=== PATIENT | male | born 1950 | race Caucasian/White ===

== ENCOUNTER → 2016-05-23 | Outpatient (CLI) | payer BC, MEDICARE ==
[~2016-05-23] MED LIST: ACIDOPHILUS PO; ACTOS 15MG TAB15 MG PO; ACTOS 45MG45 MG/TAB PO; ACTOS45 MG PO; ADDERALL10 MG PO; AMOXICILLIN 8751 TAB PO; AMPHETAMINE MIX PO; ANDROGEL1% TOP; ASPIRIN 32325 MG/TA1 PO; ATIVAN 0.50.5 MG/TAB PO; AVANDIA8 MG PO; BENADRYL25 M1 PO; BENADRYL25 M2 PO; BENADRYL25 MG PO; BUPROPION HCL150 M1 PO; CEPHALEXIN500 M1 PO; CINNAMON500 MG PO; CLOPIDOGREL PO; CRANBERRY1 POW; DEPO-TESTOS100 MG/ML IM; DESYREL 100MG100 MG PO; DIPHENHYDRAMINE25 M1 PO; DOS PO; EFFEXOR XR75 MG/CAP PO; ESTER C1 TA1 PO; FORTAMET500 MG PO; GLUCOPHAGE XR500 M1 PO; GLUCOPHAGE500 MG/TAB PO; HYDROCODONE/APAP PO; IPRATROPIUM BROM3 M1 IH; LAMICTAL150 MG PO; LAMOTRIGINE150 MG PO; LANTUS100 U/ML SQ; LATUDA40 MG PO; LAXATIVE PO; LEVEMIR100 U/ML SQ; LIPITOR 40MG TA40 MG PO; LISINOPRIL/HCTZ1 TA2 PO; LORTAB 10/500 51 TAB PO; LORTAB 5/500 501 TAB PO; LUTEIN 15 MG-0.1 SGL PO; LUTEIN20 MG PO; LUTEIN6 MG PO; MELATONIN0.3 MG PO; METFORMIN500 MG PO; MUCINEX 60600 MG/TA1 PO; MUCINEX 60600 MG/TAB PO; MUCUSRELF400T PO; MULTI VITAMINS1 TAB PO; MULTIPLE VITAMI1 CAP PO; NIRAVAM0.5 MG PO; NORCO 325 MG-101 TAB PO; NORCO 325 MG-7.1 TAB PO; NORVASC 10MG10 MG PO; NOVOLOG 100U100 U/M1 SQ; PEPTO BISM262 MG/15 PO; PERCOCET 325 MG1 TAB PO; PLAVIX 75MG TAB75 MG PO; PRINIVIL10 MG PO; PRINIVIL20 MG PO; PRISTIQ 50 MG T50 MG PO; PROZAC40 MG PO; SEROQUEL100 MG PO; SEROQUEL300 MG PO; SEROQUEL50 MG PO; STRESS B COMPLE1 TAB PO; TYLENOL 500MG500 MG PO; VICODIN PO; VTAMINC250TA; VYTORIN; VYTORIN 10 MG-81 TAB PO; WELLBUTRIN 75MG75 MG PO; WELLBUTRIN XL150 MG PO; XANAX 0.5MG0.5 MG PO; ZANTAC 150MG T150 MG PO; ZETIA 10MG TAB10 MG PO; ZOCOR 80MG80 MG PO
== END ==
LOC: BHSO 14:32
DX: F31.81 Bipolar II disorder (principal)

== ENCOUNTER → 2016-06-22 | Outpatient (CLI) | payer BC, MEDICARE | LOC: BHSO 14:29 | DX: F31.81 Bipolar II disorder (principal) ==

== ENCOUNTER → 2016-08-10 | Outpatient (CLI) | payer BC, MEDICARE | LOC: BHSO 14:16 | DX: F33.1 Major depressive disorder, recurrent, moderate (principal) ==

== ENCOUNTER → 2016-10-11 | Outpatient (CLI) | payer BC, MEDICARE | LOC: BHSO 14:39 | DX: F33.41 Major depressive disorder, recurrent, in partial remission (principal) ==

== ENCOUNTER → 2016-11-15 | Outpatient (CLI) | payer BC, MEDICARE | LOC: BHSO 15:24 | DX: F33.1 Major depressive disorder, recurrent, moderate (principal) ==

== ENCOUNTER → 2016-11-16 | Outpatient (CLI) | payer BC, MEDICARE | LOC: SUN.DIA 09:17 | DX: E11.9 Type 2 diabetes mellitus without complications (principal); Z79.4 Long term (current) use of insulin; I67.9 Cerebrovascular disease, unspecified; E66.9 Obesity, unspecified; Z68.32 Body mass index [BMI] 32.0-32.9, adult; Z71.3 Dietary counseling and surveillance; Z87.891 Personal history of nicotine dependence | CPT/HCPCS: G0108 ==

== ENCOUNTER → 2016-11-23 | Outpatient (CLI) | payer BC, MEDICARE | LOC: SUN.DIA 12:59 | DX: E11.9 Type 2 diabetes mellitus without complications (principal); Z79.4 Long term (current) use of insulin; I67.9 Cerebrovascular disease, unspecified; E66.9 Obesity, unspecified; Z68.32 Body mass index [BMI] 32.0-32.9, adult; Z71.3 Dietary counseling and surveillance; F17.210 Nicotine dependence, cigarettes, uncomplicated | CPT/HCPCS: G0108 ==

== ENCOUNTER 2016-12-22 07:34 | Outpatient (CLI) | payer BC, MEDICARE ==
[2004-09-22 09:23] VITALS: BP 152/87
[~2016-12-22] VITALS: Ht 177.8 cm; Wt 102.2 kg
[~2016-12-22 07:34] MED LIST changes: -CEPHALEXIN500 M1 PO; -LIPITOR 40MG TA40 MG PO; -NOVOLOG 100U100 U/M1 SQ; -PEPTO BISM262 MG/15 PO; -PRISTIQ 50 MG T50 MG PO
[2016-12-22] MEDS ORDERED: PRISTIQ 50 MG T50 MG PO (08:02)
[2016-12-22] MEDS ORDERED: ADDERALL10 MG PO (08:03)
[2016-12-22] MEDS ORDERED: LIPITOR 40MG TA40 MG PO (08:10)
[2016-12-22] MEDS ORDERED: NOVOLOG 100U100 U/M1 SQ (08:11)
[2016-12-22] MEDS ORDERED: LAXATIVE PO (08:14)
[2016-12-22] MEDS ORDERED: PEPTO BISM262 MG/15 PO (08:15)
[2016-12-22 08:56] VITALS: BP 135/70; PULSE 50
[2016-12-22] MEDS ORDERED: CEPHALEXIN500 M1 PO (09:12)
[2016-12-22 09:15] VITALS: BP 138/64; PULSE 59
== END 2016-12-22 09:28 | disposition home or self-care (01) ==
LOC: COL.CAR 07:34
DX: I47.2 Ventricular tachycardia (principal); I10 Essential (primary) hypertension; I27.2 Other secondary pulmonary hypertension; I05.9 Rheumatic mitral valve disease, unspecified; I73.9 Peripheral vascular disease, unspecified; Z79.01 Long term (current) use of anticoagulants; Z79.84 Long term (current) use of oral hypoglycemic drugs; Z87.891 Personal history of nicotine dependence; Z82.49 Family history of ischemic heart disease and other diseases of the circulatory system; Z80.3 Family history of malignant neoplasm of breast; Z80.8 Family history of malignant neoplasm of other organs or systems; Z82.61 Family history of arthritis; Z80.42 Family history of malignant neoplasm of prostate
CPT/HCPCS: 27124; C1764

== ENCOUNTER → 2017-01-05 | Outpatient (CLI) | payer BC, MEDICARE ==
[~2017-01-05] MED LIST changes: +CEPHALEXIN500 M1 PO; +LIPITOR 40MG TA40 MG PO; +NOVOLOG 100U100 U/M1 SQ; +PEPTO BISM262 MG/15 PO; +PRISTIQ 50 MG T50 MG PO
== END ==
LOC: SUN.DIA 09:41
DX: E11.9 Type 2 diabetes mellitus without complications (principal); Z79.4 Long term (current) use of insulin; I67.9 Cerebrovascular disease, unspecified; E66.9 Obesity, unspecified; Z68.32 Body mass index [BMI] 32.0-32.9, adult; Z71.3 Dietary counseling and surveillance; Z87.891 Personal history of nicotine dependence
CPT/HCPCS: G0108

== ENCOUNTER → 2017-01-18 | Outpatient (CLI) | payer BC, MEDICARE | LOC: BHSO 15:11 | DX: F41.0 Panic disorder [episodic paroxysmal anxiety] (principal) ==

== ENCOUNTER → 2017-03-01 | Outpatient (CLI) | payer BC, MEDICARE | LOC: BHSO 15:34 | DX: F31.81 Bipolar II disorder (principal) ==

== ENCOUNTER → 2017-04-04 | Outpatient (CLI) | payer BC, MEDICARE | LOC: SUN.DIA 09:44 | DX: E11.9 Type 2 diabetes mellitus without complications (principal); Z79.4 Long term (current) use of insulin; I67.9 Cerebrovascular disease, unspecified; E66.9 Obesity, unspecified; Z68.31 Body mass index [BMI] 31.0-31.9, adult; Z71.3 Dietary counseling and surveillance; Z87.891 Personal history of nicotine dependence | CPT/HCPCS: G0108 ==

== ENCOUNTER → 2017-04-19 | Outpatient (CLI) | payer BC, MEDICARE | LOC: COL.RAD 09:01 | DX: N28.1 Cyst of kidney, acquired (principal) ==

== ENCOUNTER → 2017-05-19 | Outpatient (CLI) | payer BC, MEDICARE | LOC: BHSO 14:50 | DX: F41.1 Generalized anxiety disorder (principal) | CPT/HCPCS: G0463 ==

== ENCOUNTER → 2017-05-29 | Outpatient (CLI) | payer BC, MEDICARE | LOC: COL.PUL 05-18 10:00 | DX: R06.02 Shortness of breath (principal); Z87.891 Personal history of nicotine dependence | CPT/HCPCS: J7674 ==

== ENCOUNTER → 2017-06-13 | Outpatient (CLI) | payer BC, MEDICARE | LOC: SUN.DIA 12:04 | DX: E11.9 Type 2 diabetes mellitus without complications (principal); Z79.4 Long term (current) use of insulin; I67.9 Cerebrovascular disease, unspecified; E66.9 Obesity, unspecified; Z68.31 Body mass index [BMI] 31.0-31.9, adult; Z71.3 Dietary counseling and surveillance; Z87.891 Personal history of nicotine dependence | CPT/HCPCS: G0108 ==

== ENCOUNTER 2017-07-09 04:16 | Inpatient (IN) | payer BC, MEDICARE ==
[~2017-07-09] VITALS: Ht 177.8 cm; Wt 102.1 kg
[2017-07-09 05:08] LABS: BASO % 0.3 % (0.0-2.0); EOS % 0.2 % (0-4.0); GRAN # 9.2 (1.4-6.5); GRAN % 80.8 % (42.2-75.2); HEMATOCRIT 50.2 % (42.0-52.0); HEMOGLOBIN 16.3 g/dl (13.5-18.0); LYMPH # 0.6 (1.2-3.4); MEAN CELL VOLUME 96 fl (80.0-100.0); MEAN CORPUSCULAR HEMOGLOBIN 31 pg (27.0-31.0); MEAN CORPUSCULAR HGB CONC 33 g/dl (33.0-37.0); MEAN PLATELET VOLUME 10.4 fl (7.4-10.4); MONO # 1.5 (0.1-0.6); MONO % 13.3 % (1.7-9.3); PLATELET COUNT 155 K/mm3 (130-400); RED BLOOD COUNT 5.22 M/mm3 (4.20-5.60)
[2017-07-09 05:21] LABS: PROTHROMBIN TIME 11.6 SECONDS (9.7-12.8)
[2017-07-09 05:24] LABS: ALANINE AMINOTRANSFERASE 43 U/L (21-72); ALBUMIN 3.9 gm/dL (3.5-5.0); ALKALINE PHOSPHATASE 103 U/L (50-136); ANION GAP 10 mmol/L (7-16); AST,SGOT 27 U/L (15-37); BILIRUBIN,TOTAL 0.5 mg/dL (0.0-1.0); BLOOD UREA NITROGEN 15 mg/dL (9-20); CALCIUM 8.6 mg/dL (8.4-10.2); CARBON DIOXIDE 24 mmol/L (22-30); CHLORIDE 101 mmol/L (98-107); CREATININE, serum 1.12 mg/dL (0.66-1.25); GLUCOSE 85 mg/dL (74-106); POTASSIUM 4.4 mmol/L (3.4-5.0); SODIUM 135 mmol/L (137-145); TOTAL PROTEIN 6.5 gm/dL (6.4-8.2)
[2017-07-09 05:35] LABS: TROPONIN-I < 0.012 ng/mL (0.000-0.034)
[2017-07-09] MEDS ORDERED: NORVASC 5MG5 MG/TAB PO (06:19)
[2017-07-09] MEDS ORDERED: ZESTRIL 10MG10 MG PO (06:19)
[2017-07-09] MEDS ORDERED: PLAVIX 75MG TAB75 MG PO (06:20)
[2017-07-09] MEDS ORDERED: FORFIVO XL450 MG PO (06:20)
[2017-07-09] MEDS ORDERED: BRINTELLIX20 PO (06:21)
[2017-07-09] MEDS ORDERED: NORCO 325 MG-101 TAB PO (06:21)
[2017-07-09] MEDS ORDERED: CENTRUM SILVER1 TAB PO (06:25)
[2017-07-09] MEDS ORDERED: LUTEIN6 MG PO (06:25)
[2017-07-09] MEDS ORDERED: STRESS FORMULA1 T16 PO (06:26)
[2017-07-09] MEDS ORDERED: ZETIA 10MG TAB10 MG PO (06:26)
[2017-07-09] MEDS ORDERED: GLUCOPHAGE500 MG/TAB PO (06:27)
[2017-07-09] MEDS ORDERED: DESYREL 100MG100 MG PO (06:27)
[2017-07-09] MEDS ORDERED: LIPITOR 40MG TA40 MG PO (06:28)
[2017-07-09] MEDS ORDERED: TRESIBA FL100 UNIT/1 SQ (06:28)
[2017-07-09 06:30] LABS: COLLECTION METHOD CLEAN CATCH
[2017-07-09] MEDS ORDERED: NOVOLOG 100U100 U/M1 SQ (06:31)
[2017-07-09] MEDS ORDERED: ANDROGEL1% SQ (06:34)
[2017-07-09] MEDS ORDERED: ATIVAN 0.50.5 MG/TAB PO (06:34)
[2017-07-09] MEDS ORDERED: RT SPIRIVA18 MCG IH (06:35)
[2017-07-09] MEDS ORDERED: RT ADVAIR HFA 2312 G IH (06:35)
[2017-07-09] MEDS ORDERED: IPRATROPIUM BROM3 M1 IH (06:36)
[2017-07-09 06:46] LABS: PH 6 (5-8); SQUAMOUS EPITHELIAL None Seen /hpf; URINE APPEARANCE Clear; URINE BACTERIA None Seen /hpf; URINE BILIRUBIN Negative (NEGATIVE); URINE BLOOD Negative (NEGATIVE); URINE COLOR Yellow; URINE GLUCOSE Negative (NEGATIVE); URINE KETONE Negative (NEGATIVE); URINE LEUKOCYTE ESTERASE 3+ (NEGATIVE); URINE NITRATE Negative (NEGATIVE); URINE PROTEIN(semi-quant) 1+ (NEGATIVE); URINE RBC 0-2 /hpf; URINE UROBILINOGEN Negative (NEGATIVE)
[2017-07-09 09:24] VITALS: BP 152/66; PULSE 59; TEMP 98.7
[2017-07-09 13:01] VITALS: BP 124/43; PULSE 65; TEMP 98.6
[2017-07-09 15:36] VITALS: BP 125/48; PULSE 52; TEMP 98.5
[2017-07-09 20:21] VITALS: BP 152/60; PULSE 70; TEMP 99.2
[2017-07-09 23:46] VITALS: BP 124/71; PULSE 61; TEMP 98.4
[2017-07-10 00:14] VITALS: BP 148/107; PULSE 69; TEMP 99.4
[2017-07-10 03:59] VITALS: BP 155/64; PULSE 56; TEMP 97.6
[2017-07-10 07:00] LABS: BASO % 0.1 % (0.0-2.0); EOS % 0.1 % (0-4.0); GRAN # 5.1 (1.4-6.5); GRAN % 69.1 % (42.2-75.2); HEMATOCRIT 47.1 % (42.0-52.0); HEMOGLOBIN 15.4 g/dl (13.5-18.0); LYMPH # 0.8 (1.2-3.4); LYMPH % 11.1 % (20.0-51.0); MEAN CELL VOLUME 96 fl (80.0-100.0); MEAN CORPUSCULAR HEMOGLOBIN 31 pg (27.0-31.0); MEAN CORPUSCULAR HGB CONC 33 g/dl (33.0-37.0); MEAN PLATELET VOLUME 10.6 fl (7.4-10.4); MONO # 1.4 (0.1-0.6); MONO % 19.2 % (1.7-9.3); PLATELET COUNT 166 K/mm3 (130-400); RED BLOOD COUNT 4.91 M/mm3 (4.20-5.60); REDCELL DISTRIBUTION WIDTH-CV 14.3 % (11.5-14.5)
[2017-07-10 07:13] LABS: CALCIUM 8.3 mg/dL (8.4-10.2); CREATININE, serum 1.05 mg/dL (0.66-1.25); MAGNESIUM 2.4 mg/dL (1.6-2.3); PHOSPHOROUS 3.2 mg/dL (2.5-4.5); POTASSIUM 3.6 mmol/L (3.4-5.0)
[2017-07-10 07:28] VITALS: BP 155/73; PULSE 59; TEMP 99
[2017-07-10 11:53] VITALS: BP 155/76; PULSE 65; TEMP 97.9
[2017-07-10 15:28] VITALS: BP 151/63; PULSE 63; TEMP 97.7
[2017-07-10 20:07] VITALS: BP 135/45; PULSE 55; TEMP 98.6
[2017-07-11] VITALS (8 sets, daily range): BP systolic 109–165; BP diastolic 55–75; PULSE 53–84; TEMP 97.5–99.1
[2017-07-11 07:56] LABS: HEMATOCRIT 47.6 % (42.0-52.0); HEMOGLOBIN 15.7 g/dl (13.5-18.0); MEAN CELL VOLUME 96 fl (80.0-100.0); MEAN CORPUSCULAR HEMOGLOBIN 32 pg (27.0-31.0); MEAN CORPUSCULAR HGB CONC 33 g/dl (33.0-37.0); MEAN PLATELET VOLUME 10.6 fl (7.4-10.4); PLATELET COUNT 176 K/mm3 (130-400); RED BLOOD COUNT 4.96 M/mm3 (4.20-5.60); REDCELL DISTRIBUTION WIDTH-CV 14.5 % (11.5-14.5)
[2017-07-11 08:10] LABS: CALCIUM 8.7 mg/dL (8.4-10.2); CREATININE, serum 1.12 mg/dL (0.66-1.25); POTASSIUM 3.8 mmol/L (3.4-5.0)
[2017-07-11 12:39] LABS: BAND 2 % (0-10); EOSINOPHIL 1 % (0-4); LYMPHOCYTE 22 % (20.0-51.0); NEUTROPHILS 64 % (42.0-75.2)
[2017-07-11 12:42] LABS: HYPOCHROMIA 1+; PLATELET ESTIMATE NORMAL (NORMAL)
[2017-07-12 02:33] VITALS: BP 136/63; PULSE 87; TEMP 98.5
[2017-07-12 06:24] LABS: EOS % 0.2 % (0-4.0); GRAN # 4.3 (1.4-6.5); GRAN % 67.5 % (42.2-75.2); HEMATOCRIT 50.5 % (42.0-52.0); HEMOGLOBIN 16.6 g/dl (13.5-18.0); LYMPH # 1.1 (1.2-3.4); LYMPH % 17.4 % (20.0-51.0); MEAN CELL VOLUME 96 fl (80.0-100.0); MEAN CORPUSCULAR HEMOGLOBIN 31 pg (27.0-31.0); MEAN CORPUSCULAR HGB CONC 33 g/dl (33.0-37.0); MEAN PLATELET VOLUME 10.1 fl (7.4-10.4); MONO # 0.9 (0.1-0.6); MONO % 14.4 % (1.7-9.3); PLATELET COUNT 177 K/mm3 (130-400); RED BLOOD COUNT 5.28 M/mm3 (4.20-5.60); REDCELL DISTRIBUTION WIDTH-CV 14.4 % (11.5-14.5)
[2017-07-12 06:43] LABS: CREATININE, serum 1.06 mg/dL (0.66-1.25); POTASSIUM 3.8 mmol/L (3.4-5.0)
[2017-07-12 07:24] VITALS: BP 180/86; PULSE 53; TEMP 97.7
[2017-07-12 12:02] VITALS: BP 166/76; PULSE 63
[2017-07-12] MEDS ORDERED: LEVAQUIN 750MG750 M1 PO (14:03)
[2017-07-12] MEDS ORDERED: PROAIR HFA0.09 MG/AC IH (14:04)
[2017-07-12] MEDS ORDERED: TESSALON P100 MG/CAP PO (14:07)
[2017-07-12] MEDS ORDERED: PREDNISONE20 MG PO (14:08)
[2017-07-12] MEDS ORDERED: MUCINEX DM 30 M1 TE1 PO (14:08)
[2017-07-12] MEDS ORDERED: FLONASE NASAL S16 GM NS (14:08)
== END 2017-07-12 16:51 | disposition home or self-care (01) | DRG 194 ==
LOC: COL.ER 04:16 → MEDICAL 07:55
PROVIDERS: Emergency Medicine; Internal Medicine; Physician Assistant
DX: J10.1 Influenza due to other identified influenza virus with other respiratory manifestations (principal); N39.0 Urinary tract infection, site not specified; G47.33 Obstructive sleep apnea (adult) (pediatric); F10.21 Alcohol dependence, in remission; J43.9 Emphysema, unspecified; E11.649 Type 2 diabetes mellitus with hypoglycemia without coma; E11.22 Type 2 diabetes mellitus with diabetic chronic kidney disease; I12.9 Hypertensive chronic kidney disease with stage 1 through stage 4 chronic kidney disease, or unspecified chronic kidney disease; N18.9 Chronic kidney disease, unspecified; Z87.891 Personal history of nicotine dependence; Z79.4 Long term (current) use of insulin; Z86.73 Personal history of transient ischemic attack (TIA), and cerebral infarction without residual deficits
CPT/HCPCS: 99222-AI; 99231-AI; 99232-AI; 99239; G0378; G8978-GP; G8979-GP; G8987-GO; G8988-GO; J0456; J0696; J1644; J1815; J2405; J7030; J7050; J7512

== ENCOUNTER → 2017-07-20 | Outpatient (CLI) | payer BC, MEDICARE ==
[~2017-07-20] MED LIST changes: +ANDROGEL1% SQ; +BRINTELLIX20 PO; +CENTRUM SILVER1 TAB PO; +FLONASE NASAL S16 GM NS; +FORFIVO XL450 MG PO; +LEVAQUIN 750MG750 M1 PO; +MUCINEX DM 30 M1 TE1 PO; +NORVASC 5MG5 MG/TAB PO; +PREDNISONE20 MG PO; +PROAIR HFA0.09 MG/AC IH; +RT ADVAIR HFA 2312 G IH; +RT SPIRIVA18 MCG IH; +STRESS FORMULA1 T16 PO; +TESSALON P100 MG/CAP PO; +TRESIBA FL100 UNIT/1 SQ; +ZESTRIL 10MG10 MG PO
== END ==
LOC: SUN.DIA 15:01
DX: E11.9 Type 2 diabetes mellitus without complications (principal); Z79.4 Long term (current) use of insulin; I67.9 Cerebrovascular disease, unspecified; E66.9 Obesity, unspecified; Z68.30 Body mass index [BMI] 30.0-30.9, adult; Z71.3 Dietary counseling and surveillance; Z87.891 Personal history of nicotine dependence
CPT/HCPCS: G0108

== ENCOUNTER → 2017-08-15 | Outpatient (CLI) | payer BC, MEDICARE | LOC: BHSO 15:16 | DX: F33.41 Major depressive disorder, recurrent, in partial remission (principal) | CPT/HCPCS: G0463 ==

== ENCOUNTER → 2017-10-26 | Outpatient (CLI) | payer BC, MEDICARE | LOC: SUN.DIA 15:28 | DX: E11.9 Type 2 diabetes mellitus without complications (principal); Z79.4 Long term (current) use of insulin; I67.9 Cerebrovascular disease, unspecified; E66.9 Obesity, unspecified; Z68.29 Body mass index [BMI] 29.0-29.9, adult; Z71.3 Dietary counseling and surveillance; Z87.891 Personal history of nicotine dependence | CPT/HCPCS: G0108 ==

== ENCOUNTER → 2017-11-16 | Outpatient (CLI) | payer BC, MEDICARE | LOC: BHSO 15:30 | DX: F06.32 Mood disorder due to known physiological condition with major depressive-like episode (principal) | CPT/HCPCS: G0463 ==

== ENCOUNTER 2017-12-15 08:34 | Inpatient (IN) | payer BC, MEDICARE ==
[~2017-12-15] VITALS: Ht 177.8 cm; Wt 90.5 kg
[2017-12-15] VITALS (9 sets, daily range): BP systolic 137–182; BP diastolic 59–101; PULSE 58–80; TEMP 97.8–98.5
[2017-12-15 09:48] LABS: HEMATOCRIT 53.2 % (42.0-52.0); HEMOGLOBIN 17.7 g/dl (13.5-18.0); MEAN CELL VOLUME 97 fl (80.0-100.0); MEAN CORPUSCULAR HEMOGLOBIN 32 pg (27.0-31.0); MEAN CORPUSCULAR HGB CONC 33 g/dl (33.0-37.0); MEAN PLATELET VOLUME 9.6 fl (7.4-10.4); PLATELET COUNT 204 K/mm3 (130-400); RED BLOOD COUNT 5.48 M/mm3 (4.20-5.60); REDCELL DISTRIBUTION WIDTH-CV 13.2 % (11.5-14.5)
[2017-12-15 09:56] LABS: INR 0.9 (0.8-3.0); PROTHROMBIN TIME 10.7 SECONDS (9.7-12.8)
[2017-12-15] MEDS ORDERED: TYLENOL PM EXTR1 TA1 PO (10:00)
[2017-12-15] MEDS ORDERED: SENOKOT S 50 MG1 TAB PO (10:01)
[2017-12-15 10:02] LABS: CREATININE, serum 1.17 mg/dL (0.66-1.25); POTASSIUM 4.4 mmol/L (3.4-5.0)
[2017-12-15] MEDS ORDERED: ULTRAM 50MG TAB50 MG PO (10:02)
[2017-12-15] MEDS ORDERED: PEPTO BISM262 MG/15 PO (10:02)
[2017-12-16] VITALS (7 sets, daily range): BP systolic 118–166; BP diastolic 59–81; PULSE 37–60; TEMP 97.7–98.4
[2017-12-17 04:38] VITALS: BP 185/87; PULSE 62; TEMP 97.8
[2017-12-17 05:11] VITALS: BP 128/80
[2017-12-17 07:44] VITALS: BP 138/74; PULSE 60; TEMP 97.6
[2017-12-17] MEDS ORDERED: BETAPACE 80MG80 MG PO (10:51)
[2017-12-17 11:24] VITALS: BP 150/69; PULSE 62; TEMP 97.9
== END 2017-12-17 12:41 | disposition home or self-care (01) | DRG 227 ==
LOC: COL.CAR 08:34 → MEDICAL 12:00
PROVIDERS: Internal Medicine Cardiovascular Disease
PROC: 0JH608Z Insertion of Defibrillator Generator into Chest Subcutaneous Tissue and Fascia, Open Approach (ICD-10-PCS; principal; 2017-12-15)
PROC: 02HK3KZ Insertion of Defibrillator Lead into Right Ventricle, Percutaneous Approach (ICD-10-PCS; 2017-12-15)
PROC: 02H63KZ Insertion of Defibrillator Lead into Right Atrium, Percutaneous Approach (ICD-10-PCS; 2017-12-15)
DX: I47.1 Supraventricular tachycardia (principal); I10 Essential (primary) hypertension; E11.9 Type 2 diabetes mellitus without complications; Z87.891 Personal history of nicotine dependence; Z95.0 Presence of cardiac pacemaker; I27.20 Pulmonary hypertension, unspecified
CPT/HCPCS: J0690; J1815; J2250; J3010

== ENCOUNTER 2017-12-20 04:01 | Observation (INO) | payer BC, MEDICARE ==
[~2017-12-20] VITALS: Ht 177.8 cm; Wt 90.6 kg
[2017-12-20] VITALS (8 sets, daily range): BP systolic 115–155; BP diastolic 73–84; PULSE 58–97; TEMP 97.7–98.8
[~2017-12-20 04:01] MED LIST changes: +BETAPACE 80MG80 MG PO; +SENOKOT S 50 MG1 TAB PO; +TYLENOL PM EXTR1 TA1 PO; +ULTRAM 50MG TAB50 MG PO
[2017-12-20 04:29] LABS: BASO % 0.2 % (0.0-2.0); EOS # 0.1 (0.0-0.7); EOS % 1.3 % (0-4.0); GRAN # 6.2 (1.4-6.5); GRAN % 66.2 % (42.2-75.2); HEMATOCRIT 50.4 % (42.0-52.0); HEMOGLOBIN 16.9 g/dl (13.5-18.0); LYMPH # 1.9 (1.2-3.4); LYMPH % 19.9 % (20.0-51.0); MEAN CELL VOLUME 97 fl (80.0-100.0); MEAN CORPUSCULAR HEMOGLOBIN 33 pg (27.0-31.0); MEAN CORPUSCULAR HGB CONC 34 g/dl (33.0-37.0); MEAN PLATELET VOLUME 10.2 fl (7.4-10.4); MONO # 1.1 (0.1-0.6); PLATELET COUNT 171 K/mm3 (130-400); RED BLOOD COUNT 5.19 M/mm3 (4.20-5.60); REDCELL DISTRIBUTION WIDTH-CV 13.2 % (11.5-14.5)
[2017-12-20 04:36] LABS: ALBUMIN 3.6 gm/dL (3.5-5.0); BILIRUBIN,TOTAL 0.3 mg/dL (0.0-1.0); CALCIUM 8.4 mg/dL (8.4-10.2); CREATININE, serum 1.11 mg/dL (0.66-1.25); TOTAL PROTEIN 6.1 gm/dL (6.4-8.2)
[2017-12-20] MEDS ORDERED: COLACE 100100 MG/CAP PO (04:45)
[2017-12-20] MEDS ORDERED: FIBERCON (04:45)
[2017-12-20] MEDS ORDERED: MELATONIN5 M1 SL (04:46)
[2017-12-20 04:48] LABS: TROPONIN-I 0.017 ng/mL (0.000-0.034)
[2017-12-20] MEDS ORDERED: LINZESS145CAP (05:41)
[2017-12-20] MEDS ORDERED: PATANOL OPHTHALM5 ML OU (05:47)
[2017-12-20] MEDS ORDERED: ZYRTEC5 MG PO (05:47)
[2017-12-21 00:20] VITALS: PULSE 58; PULSE 88
[2017-12-21 02:49] VITALS: BP 122/70; PULSE 56; TEMP 97.5
[2017-12-21 06:47] VITALS: BP 141/81; PULSE 60; TEMP 97.8
[2017-12-21 11:40] VITALS: BP 133/76; PULSE 66; TEMP 98.4
[2017-12-21 15:51] VITALS: BP 111/66; PULSE 93; TEMP 98.3
[2017-12-21] MEDS ORDERED: NOVOLOG 100U100 U/M1 SQ (16:22)
== END 2017-12-21 19:16 | disposition home or self-care (01) ==
LOC: COL.ER 04:01 → MEDICAL 07:18 → EDBEDREQ 10:47 → MEDICAL 12-21 19:16
PROVIDERS: Emergency Medicine
DX: R07.89 Other chest pain (principal); E11.9 Type 2 diabetes mellitus without complications; I49.01 Ventricular fibrillation; I47.2 Ventricular tachycardia; I73.9 Peripheral vascular disease, unspecified; Z95.810 Presence of automatic (implantable) cardiac defibrillator; F31.9 Bipolar disorder, unspecified; Z79.02 Long term (current) use of antithrombotics/antiplatelets; Z86.73 Personal history of transient ischemic attack (TIA), and cerebral infarction without residual deficits; J44.9 Chronic obstructive pulmonary disease, unspecified; J32.9 Chronic sinusitis, unspecified; I10 Essential (primary) hypertension; E78.5 Hyperlipidemia, unspecified; K59.00 Constipation, unspecified; G47.33 Obstructive sleep apnea (adult) (pediatric)
CPT/HCPCS: A9502; G0378; J1815; J2785

== ENCOUNTER 2017-12-24 03:11 | Emergency (ER) | payer BC, MEDICARE ==
[2004-09-22 09:23] VITALS: BP 152/87
[~2017-12-24] VITALS: Ht 177.8 cm; Wt 90.5 kg
[~2017-12-24 03:11] MED LIST changes: +COLACE 100100 MG/CAP PO; +FIBERCON; +LINZESS145CAP; +MELATONIN5 M1 SL; +PATANOL OPHTHALM5 ML OU; +ZYRTEC5 MG PO
[2017-12-24 03:31] LABS: BASO % 0.3 % (0.0-2.0); EOS # 0.2 (0.0-0.7); EOS % 2.2 % (0-4.0); GRAN # 5.3 (1.4-6.5); GRAN % 60.8 % (42.2-75.2); HEMOGLOBIN 17.7 g/dl (13.5-18.0); LYMPH # 2.2 (1.2-3.4); LYMPH % 24.7 % (20.0-51.0); MEAN CELL VOLUME 97 fl (80.0-100.0); MEAN CORPUSCULAR HEMOGLOBIN 32 pg (27.0-31.0); MEAN CORPUSCULAR HGB CONC 33 g/dl (33.0-37.0); MEAN PLATELET VOLUME 10.4 fl (7.4-10.4); MONO % 11.5 % (1.7-9.3); PLATELET COUNT 161 K/mm3 (130-400); RED BLOOD COUNT 5.49 M/mm3 (4.20-5.60); REDCELL DISTRIBUTION WIDTH-CV 13.1 % (11.5-14.5)
[2017-12-24 03:35] LABS: PARTIAL THROMBOPLASTIN TIME 45.9 SECONDS (26.0-37.0)
[2017-12-24 03:37] LABS: INR 0.9 (0.8-3.0); PROTHROMBIN TIME 10.6 SECONDS (9.7-12.8)
[2017-12-24 03:38] LABS: ALANINE AMINOTRANSFERASE 64 U/L (21-72); ALBUMIN 3.9 gm/dL (3.5-5.0); ALKALINE PHOSPHATASE 127 U/L (50-136); ANION GAP 12 mmol/L (7-16); AST,SGOT 41 U/L (15-37); BILIRUBIN,TOTAL 0.5 mg/dL (0.0-1.0); BLOOD UREA NITROGEN 16 mg/dL (9-20); CALCIUM 8.9 mg/dL (8.4-10.2); CARBON DIOXIDE 23 mmol/L (22-30); CHLORIDE 104 mmol/L (98-107); CREATININE, serum 0.95 mg/dL (0.66-1.25); GLUCOSE 201 mg/dL (74-106); LIPASE 67 U/L (23-300); POTASSIUM 4.1 mmol/L (3.4-5.0); SODIUM 138 mmol/L (137-145); TOTAL PROTEIN 6.7 gm/dL (6.4-8.2)
[2017-12-24 03:50] LABS: TROPONIN-I < 0.012 ng/mL (0.000-0.034)
[2017-12-24 10:00] VITALS: BP 179/98; PULSE 65
== END 2017-12-24 10:00 | disposition short-term general hospital (02) ==
LOC: COL.ER 03:11
PROVIDERS: Emergency Medicine
DX: I21.4 Non-ST elevation (NSTEMI) myocardial infarction (principal); E78.5 Hyperlipidemia, unspecified; J44.9 Chronic obstructive pulmonary disease, unspecified; E11.51 Type 2 diabetes mellitus with diabetic peripheral angiopathy without gangrene; Z79.4 Long term (current) use of insulin; Z79.891 Long term (current) use of opiate analgesic; Z95.810 Presence of automatic (implantable) cardiac defibrillator
CPT/HCPCS: J1650

== ENCOUNTER 2017-12-26 13:34 | Emergency (ER) | payer BC, MEDICARE ==
[2004-09-22 09:23] VITALS: BP 152/87
[~2017-12-26] VITALS: Ht 177.8 cm; Wt 90.9 kg
[2017-12-26 13:38] VITALS: TEMP 98.7
[2017-12-26 13:59] LABS: BASO % 0.3 % (0.0-2.0); EOS # 0.1 (0.0-0.7); EOS % 0.9 % (0-4.0); GRAN # 7.2 (1.4-6.5); GRAN % 74.8 % (42.2-75.2); LYMPH # 1.2 (1.2-3.4); LYMPH % 12.8 % (20.0-51.0); MEAN CELL VOLUME 95 fl (80.0-100.0); MEAN CORPUSCULAR HEMOGLOBIN 32 pg (27.0-31.0); MEAN CORPUSCULAR HGB CONC 34 g/dl (33.0-37.0); MONO % 10.9 % (1.7-9.3); PLATELET COUNT 165 K/mm3 (130-400); RED BLOOD COUNT 5.57 M/mm3 (4.20-5.60)
[2017-12-26] MEDS ORDERED: ASPI325T6 PO (14:02)
[2017-12-26] MEDS ORDERED: TOPROL XL 25MG25 MG PO (14:03)
[2017-12-26 14:05] LABS: HEMATOCRIT 53.1 % (42.0-52.0)
[2017-12-26 14:09] LABS: PROTHROMBIN TIME 10.8 SECONDS (9.7-12.8)
[2017-12-26 14:11] LABS: ALBUMIN 4.2 gm/dL (3.5-5.0); BILIRUBIN,TOTAL 0.9 mg/dL (0.0-1.0); CALCIUM 9.3 mg/dL (8.4-10.2); CREATININE, serum 0.93 mg/dL (0.66-1.25); PARTIAL THROMBOPLASTIN TIME 39.1 SECONDS (26.0-37.0); POTASSIUM 4.1 mmol/L (3.4-5.0); TOTAL PROTEIN 7.1 gm/dL (6.4-8.2)
[2017-12-26 14:28] LABS: TROPONIN-I 0.221 ng/mL (0.000-0.034)
[2017-12-26 17:07] VITALS: BP 130/81; PULSE 70
== END 2017-12-26 17:07 | disposition home or self-care (01) ==
LOC: COL.ER 13:34
PROVIDERS: Family Medicine
DX: I25.10 Atherosclerotic heart disease of native coronary artery without angina pectoris (principal); I10 Essential (primary) hypertension; E11.9 Type 2 diabetes mellitus without complications; Z95.810 Presence of automatic (implantable) cardiac defibrillator; Z87.891 Personal history of nicotine dependence; Z79.4 Long term (current) use of insulin; Z79.891 Long term (current) use of opiate analgesic; Z79.82 Long term (current) use of aspirin

== ENCOUNTER 2018-01-03 13:51 | Emergency (ER) | payer BC, MEDICARE ==
[2004-09-22 09:23] VITALS: BP 152/87
[~2018-01-03] VITALS: Ht 177.8 cm; Wt 90.9 kg
[~2018-01-03 13:51] MED LIST changes: +ASPI325T6 PO; +TOPROL XL 25MG25 MG PO
[2018-01-03 13:53] VITALS: TEMP 97.6
[2018-01-03 14:22] LABS: BASO % 0.2 % (0.0-2.0); EOS # 0.2 (0.0-0.7); EOS % 1.8 % (0-4.0); GRAN # 6.1 (1.4-6.5); GRAN % 72.9 % (42.2-75.2); HEMATOCRIT 48.1 % (42.0-52.0); HEMOGLOBIN 16.3 g/dl (13.5-18.0); LYMPH # 1.2 (1.2-3.4); LYMPH % 14.7 % (20.0-51.0); MEAN CELL VOLUME 96 fl (80.0-100.0); MEAN CORPUSCULAR HEMOGLOBIN 32 pg (27.0-31.0); MEAN CORPUSCULAR HGB CONC 34 g/dl (33.0-37.0); MEAN PLATELET VOLUME 9.7 fl (7.4-10.4); MONO # 0.8 (0.1-0.6); MONO % 9.8 % (1.7-9.3); PLATELET COUNT 196 K/mm3 (130-400); RED BLOOD COUNT 5.03 M/mm3 (4.20-5.60); REDCELL DISTRIBUTION WIDTH-CV 13.2 % (11.5-14.5)
[2018-01-03] MEDS ORDERED: MUCINEX DM 60 M1 TER PO (14:25)
[2018-01-03] MEDS ORDERED: TYLENOL 325MG325 MG PO (14:26)
[2018-01-03] MEDS ORDERED: BENADRYL25 M2 PO (14:26)
[2018-01-03 14:37] LABS: ALANINE AMINOTRANSFERASE 71 U/L (21-72); ALBUMIN 3.6 gm/dL (3.5-5.0); ALKALINE PHOSPHATASE 84 U/L (50-136); ANION GAP 10 mmol/L (7-16); AST,SGOT 49 U/L (15-37); BILIRUBIN,TOTAL 0.5 mg/dL (0.0-1.0); BLOOD UREA NITROGEN 22 mg/dL (9-20); CALCIUM 8.9 mg/dL (8.4-10.2); CARBON DIOXIDE 24 mmol/L (22-30); CHLORIDE 102 mmol/L (98-107); CREATININE, serum 1.03 mg/dL (0.66-1.25); GLUCOSE 178 mg/dL (74-106); LIPASE 186 U/L (23-300); POTASSIUM 4.3 mmol/L (3.4-5.0); SODIUM 135 mmol/L (137-145); TOTAL PROTEIN 6.2 gm/dL (6.4-8.2)
[2018-01-03 14:38] LABS: C-REACTIVE PROTEIN < 0.5 mg/dL (0.0-0.9)
[2018-01-03 14:50] LABS: TROPONIN-I < 0.012 ng/mL (0.000-0.034)
[2018-01-03 18:15] VITALS: BP 135/77; PULSE 61
== END 2018-01-03 18:15 | disposition home or self-care (01) ==
LOC: COL.ER 13:51
PROVIDERS: Emergency Medicine
DX: R07.9 Chest pain, unspecified (principal); E11.9 Type 2 diabetes mellitus without complications; I10 Essential (primary) hypertension; E78.5 Hyperlipidemia, unspecified; Z95.0 Presence of cardiac pacemaker; Z95.5 Presence of coronary angioplasty implant and graft; Z87.891 Personal history of nicotine dependence; Z79.4 Long term (current) use of insulin; Z79.891 Long term (current) use of opiate analgesic; Z79.82 Long term (current) use of aspirin

== ENCOUNTER 2018-02-23 18:09 | Emergency (ER) | payer BC, MEDICARE ==
[2004-09-22 09:23] VITALS: BP 152/87
[~2018-02-23] VITALS: Ht 177.8 cm; Wt 104.5 kg
[~2018-02-23 18:09] MED LIST changes: +MUCINEX DM 60 M1 TER PO; +TYLENOL 325MG325 MG PO
[2018-02-23 18:14] VITALS: TEMP 98
[2018-02-23 18:37] LABS: BASO % 0.2 % (0.0-2.0); EOS # 0.2 (0.0-0.7); EOS % 1.5 % (0-4.0); GRAN # 10.9 (1.4-6.5); GRAN % 82.3 % (42.2-75.2); HEMOGLOBIN 17.2 g/dl (13.5-18.0); LYMPH # 1.1 (1.2-3.4); LYMPH % 7.9 % (20.0-51.0); MEAN CELL VOLUME 99 fl (80.0-100.0); MEAN CORPUSCULAR HEMOGLOBIN 32 pg (27.0-31.0); MEAN CORPUSCULAR HGB CONC 33 g/dl (33.0-37.0); MEAN PLATELET VOLUME 10.1 fl (7.4-10.4); MONO % 7.5 % (1.7-9.3); PLATELET COUNT 153 K/mm3 (130-400); RED BLOOD COUNT 5.31 M/mm3 (4.20-5.60); REDCELL DISTRIBUTION WIDTH-CV 14.4 % (11.5-14.5)
[2018-02-23 18:49] LABS: HEMATOCRIT 52.3 % (42.0-52.0)
[2018-02-23 19:19] LABS: ALBUMIN 3.8 gm/dL (3.5-5.0); BILIRUBIN,TOTAL 0.7 mg/dL (0.0-1.0); CALCIUM 8.8 mg/dL (8.4-10.2); CREATININE, serum 1.27 mg/dL (0.66-1.25); POTASSIUM 4.3 mmol/L (3.4-5.0); TOTAL PROTEIN 6.6 gm/dL (6.4-8.2)
[2018-02-23 20:50] VITALS: BP 144/76; PULSE 60
== END 2018-02-23 20:50 | disposition home or self-care (01) ==
LOC: COL.ER 18:09
PROVIDERS: Emergency Medicine
DX: T38.3X5A Adverse effect of insulin and oral hypoglycemic [antidiabetic] drugs, initial encounter (principal); E11.649 Type 2 diabetes mellitus with hypoglycemia without coma; J44.9 Chronic obstructive pulmonary disease, unspecified; I10 Essential (primary) hypertension; I25.10 Atherosclerotic heart disease of native coronary artery without angina pectoris; Z95.5 Presence of coronary angioplasty implant and graft; Z79.51 Long term (current) use of inhaled steroids; Z79.4 Long term (current) use of insulin
CPT/HCPCS: J7030

== ENCOUNTER → 2018-03-23 | Outpatient (CLI) | payer BC, MEDICARE | LOC: BHSO 13:47 | DX: F41.1 Generalized anxiety disorder (principal) | CPT/HCPCS: G0463 ==

== ENCOUNTER → 2018-05-07 | Outpatient (CLI) | payer BC, MEDICARE | LOC: BHSO 09:38 | DX: F33.41 Major depressive disorder, recurrent, in partial remission (principal) | CPT/HCPCS: G0463 ==

== ENCOUNTER → 2018-05-15 | Outpatient (CLI) | payer BC, MEDICARE | LOC: SUN.DIA 13:18 | DX: E11.9 Type 2 diabetes mellitus without complications (principal); E66.9 Obesity, unspecified | CPT/HCPCS: G0109 ==

== ENCOUNTER 2018-06-12 23:31 | Inpatient (IN) | payer BC, MEDICARE ==
[~2018-06-12] VITALS: Ht 177.8 cm; Wt 93.8 kg
[2018-06-13] VITALS (427 sets, daily range): BP systolic 98–161; BP diastolic 52–96; PULSE 58–68; TEMP 97.9–100.4; O2SAT 84–100
[2018-06-13 00:03] LABS: BASO % 0.2 % (0.0-2.0); EOS # 0.1 (0.0-0.7); EOS % 0.4 % (0-4.0); GRAN # 15.8 (1.4-6.5); GRAN % 86.1 % (42.2-75.2); HEMOGLOBIN 17.2 g/dl (13.5-18.0); LYMPH % 5.6 % (20.0-51.0); MEAN CELL VOLUME 97 fl (80.0-100.0); MEAN CORPUSCULAR HEMOGLOBIN 33 pg (27.0-31.0); MEAN CORPUSCULAR HGB CONC 34 g/dl (33.0-37.0); MEAN PLATELET VOLUME 9.6 fl (7.4-10.4); MONO # 1.3 (0.1-0.6); MONO % 7.2 % (1.7-9.3); PLATELET COUNT 230 K/mm3 (130-400); RED BLOOD COUNT 5.27 M/mm3 (4.20-5.60); REDCELL DISTRIBUTION WIDTH-CV 13.5 % (11.5-14.5)
[2018-06-13 00:17] LABS: ALBUMIN 4.1 gm/dL (3.5-5.0); BILIRUBIN,TOTAL 0.5 mg/dL (0.0-1.0); C-REACTIVE PROTEIN 1.4 mg/dL (0.0-0.9); CREATININE, serum 1.05 mg/dL (0.66-1.25); POTASSIUM 4.1 mmol/L (3.4-5.0); TOTAL PROTEIN 7.3 gm/dL (6.4-8.2)
--- NOTE | 2018-06-13 02:24 | NUR ---
Report received from ED. Patient will be brought over shortly via stretcher.
--- NOTE | 2018-06-13 02:44 | NUR ---
Patient arrives at this time via stretcher with belongings. Patient ambulates from stretcher to unit bed with no difficulty. Attached to monitoring equipment. Assessment complete. Patient has complaints of sharp 8/10 pain in the left side of his abdomen. Abdomen is firm and distended on that side. The rest of his abdomen is soft and nontender. Medication to be provided. Patient is requesting a cup of water, provided. Patient is resting comfortably in bed now. No further needs at this time. Will continue to monitor. Call light within reach.
[2018-06-13] MEDS ORDERED: LAMICTAL 100MG100 MG PO (03:59)
[2018-06-13] MEDS ORDERED: LASIX 20MG TABL20 MG PO (04:00)
--- NOTE | 2018-06-13 04:00 | NUR ---
Patient resting in bed. VSS. No current needs at this time. Will continue to monitor and provide pain meds prn. Call light within reach
[2018-06-13 05:28] LABS: BASO % 0.1 % (0.0-2.0); EOS # 0.1 (0.0-0.7); EOS % 0.4 % (0-4.0); GRAN # 12.7 (1.4-6.5); GRAN % 81.3 % (42.2-75.2); HEMATOCRIT 45.8 % (42.0-52.0); HEMOGLOBIN 15.2 g/dl (13.5-18.0); LYMPH # 1.3 (1.2-3.4); LYMPH % 8.6 % (20.0-51.0); MEAN CELL VOLUME 97 fl (80.0-100.0); MEAN CORPUSCULAR HEMOGLOBIN 32 pg (27.0-31.0); MEAN CORPUSCULAR HGB CONC 33 g/dl (33.0-37.0); MEAN PLATELET VOLUME 9.8 fl (7.4-10.4); MONO # 1.4 (0.1-0.6); MONO % 9.1 % (1.7-9.3); PLATELET COUNT 186 K/mm3 (130-400); REDCELL DISTRIBUTION WIDTH-CV 13.7 % (11.5-14.5)
[2018-06-13 05:38] LABS: CALCIUM 9.1 mg/dL (8.4-10.2); CREATININE, serum 0.9 mg/dL (0.66-1.25); POTASSIUM 3.9 mmol/L (3.4-5.0)
--- NOTE | 2018-06-13 07:05 | NUR ---
Bedside report given to SALLY Avila.
--- NOTE | 2018-06-13 08:47 | NUR ---
Initial visit; Patient thanked Reservoir Caretaker for looking in on him and offering comfort and God's blessings.
--- NOTE | 2018-06-13 10:05 | NUR ---
REPORT GIVEN TO EMPERATRIZ ZAVALA
--- NOTE | 2018-06-13 10:06 | NUR ---
SW attended clinical rounds. Patient will be transferred upstairs this morning. Patient live independently at home. His PCP is Dr Garza and he obtains prescriptions from [facility]. There is no reported DME or home health used in the home. Patient has advance directives and those forms are in this chart. SW does not anticipate any needs upon discharge but will continue to follow.
--- NOTE | 2018-06-13 10:21 | NUR ---
PT TRANSFERRED TO MEDICAL ROOM 305 VIA WHEELCHAIR. PT'S BELONGINGS TRANSFERRED WITH PATIENT. CONTACT MADE WITH GLENN AND EMPERATRIZ UPON TRANSFER.
--- NOTE | 2018-06-13 10:40 | NUR ---
Pt arrives to medical floor rm 305 from ICU via WC, A&O x 3. IVF's restarted per orders through left AC site without s/s of complications. ABD distended, pt reports pain to left abd 7 out of 10 with movement, requests medication when available. No further needs reported. Call light in reach.
--- NOTE | 2018-06-13 18:00 | NUR ---
Pt sitting up in bed, reports pain medication really helps with abd pain. IVF's infusing without s/s of complications. No further needs reported. Call light in reach.
[2018-06-14 01:10] VITALS: TEMP 97.7
[2018-06-14 02:57] VITALS: BP 94/60; PULSE 60; TEMP 98.1
[2018-06-14 06:15] LABS: MEAN CELL VOLUME 100 fl (80.0-100.0); MEAN CORPUSCULAR HEMOGLOBIN 32 pg (27.0-31.0); MEAN CORPUSCULAR HGB CONC 32 g/dl (33.0-37.0); MEAN PLATELET VOLUME 9.8 fl (7.4-10.4); PLATELET COUNT 170 K/mm3 (130-400); RED BLOOD COUNT 3.92 M/mm3 (4.20-5.60); REDCELL DISTRIBUTION WIDTH-CV 14.2 % (11.5-14.5)
[2018-06-14 06:20] LABS: HEMOGLOBIN 12.6 g/dl (13.5-18.0)
--- NOTE | 2018-06-14 06:22 | NUR ---
PT HAD C/O ABD PAIN THROUGHOUT NOC AND NEEDED PRN PAIN MEDICATION REGULARLY. APPEARED TO HAVE SLEPT ONLY A SHORT PERIOD OF TIME DURING THE NOC. FSBS AT HS WAS 125, PT REFUSED HS INSULIN, WHEN 0000 FSBS WHERE DONE PT FSBS WAS 88 AT THAT TIME. PT EXPRESSED CONERNS ABOUT FSBS BEING THAT LOW AND STATED THAT WHEN HE GOES LOW IT CAN GO QUICKLY ON GETTING HYPOGLYCEMIC. PT REQUESTED A SNACK, PROVIDED SWEETNED APPLE SAUCE. PT FSBS WAS BACK UP TO 112 AFTER AN HOUR. PT HAS PERSONAL GLUCLOSE METER IN ROOM AND RECHECKED HIS FSBS A HOUR AFTER EATING APPLESAUSE. FSBS REMAINED WNL THROUGHOUT NOC. NO OTHER ISSUES OR CONSERNS VOICED AT THIS TIME.
[2018-06-14 06:27] LABS: CALCIUM 8.4 mg/dL (8.4-10.2); CREATININE, serum 0.94 mg/dL (0.66-1.25); MAGNESIUM 1.6 mg/dL (1.6-2.3)
[2018-06-14 06:56] VITALS: BP 110/55; PULSE 59; TEMP 98.4
[2018-06-14 07:03] LABS: LYMPHOCYTE 10 % (20.0-51.0); MYELOCYTE 1 % (0-0); NEUTROPHILS 84 % (42.0-75.2); PLATELET ESTIMATE NORMAL (NORMAL)
--- NOTE | 2018-06-14 10:01 | NUR ---
Follow-up visit; Patient thanked administrative coordinator for looking in on him again and wishing him well.
--- NOTE | 2018-06-14 10:09 | NUR ---
Pt resting in bed with call light within reach; complaining of abdominal pain, prn meds given as documented. IVF infusing per orders. Denies further needs at this time; will continue to monitor.
[2018-06-14 10:39] VITALS: BP 125/93; PULSE 57; TEMP 98.7
[2018-06-14 15:46] VITALS: BP 99/41; PULSE 59; TEMP 98.2
--- NOTE | 2018-06-14 18:24 | NUR ---
Pt had uneventful day. PRN pain meds given as documented. Pt denies further needs at this time.
--- NOTE | 2018-06-14 18:42 | NUR ---
Report given to SALLY Villarreal. Pt resting in bed.
[2018-06-14 19:34] VITALS: BP 124/58; BP 140/98; PULSE 130; PULSE 59; TEMP 100.3; TEMP 97.2
[2018-06-15] VITALS (7 sets, daily range): BP systolic 128–154; BP diastolic 58–70; PULSE 59–600; TEMP 97.3–98.8
--- NOTE | 2018-06-15 05:41 | NUR ---
PT NEEDED PAIN MEDICINE REQULARLY. PT HAD A FEW LOOSE STOOLS WITH NOTED BRIGHT RED BLOOD. FIRST BM WAS A LARGE AMOUNT, HAS DECREASED IN BM SIZE SINCE. HAS C/O SOME "SWELLING" TO HANDS BUT IS MINIMAL. STATED HE HAS VOIDED FREQUENTLY THIS HS AND FELT LIKE HE WAS RETAINING URINE. THIS NURSE PERFORMED BLADDER SCAN AND ONLY SAW 25ML POST VOID OR RESIDULE. NO OTHER ISSUES OR CONSERNS VOICED THIS SHIFT.
[2018-06-15 05:53] LABS: BASO % 0.2 % (0.0-2.0); EOS # 0.2 (0.0-0.7); EOS % 1.5 % (0-4.0); GRAN # 9.5 (1.4-6.5); GRAN % 76.1 % (42.2-75.2); HEMATOCRIT 37.6 % (42.0-52.0); HEMOGLOBIN 12.2 g/dl (13.5-18.0); LYMPH # 1.4 (1.2-3.4); MEAN CELL VOLUME 99 fl (80.0-100.0); MEAN CORPUSCULAR HEMOGLOBIN 32 pg (27.0-31.0); MEAN CORPUSCULAR HGB CONC 32 g/dl (33.0-37.0); MEAN PLATELET VOLUME 9.8 fl (7.4-10.4); MONO # 1.3 (0.1-0.6); MONO % 10.6 % (1.7-9.3); PLATELET COUNT 177 K/mm3 (130-400); RED BLOOD COUNT 3.79 M/mm3 (4.20-5.60)
[2018-06-15 06:00] LABS: CALCIUM 8.6 mg/dL (8.4-10.2); CREATININE, serum 0.8 mg/dL (0.66-1.25); POTASSIUM 3.6 mmol/L (3.4-5.0)
--- NOTE | 2018-06-15 07:44 | NUR ---
Pt assessment complete. Pt is sitting up on the side of the bed upon entry, he is A/O x3. His breathing is currently even and unlabored on 3L O2 via NC. Pt reports dyspnea on exertion. No pain at this time. No N/V currently. Pt denies any loose stools this am. Refuses am dose of insulin. IVF infusing without complications. Pt denies needs at this time. Call light within reach.
--- NOTE | 2018-06-15 10:50 | NUR ---
Pt urinated 600ml, post void bladder scan performed. 48ml present in bladder. PRN pain medication administered for pain to abdomen 10/15. PT in to walk with patient at this time.
[2018-06-15 17:49] LABS: COLLECTION METHOD CLEAN CATCH
[2018-06-15 17:59] LABS: PH 7 (5-8); SQUAMOUS EPITHELIAL 0-2 /hpf; URINE APPEARANCE Clear; URINE BACTERIA Rare /hpf; URINE BILIRUBIN Negative (NEGATIVE); URINE BLOOD Negative (NEGATIVE); URINE COLOR Straw; URINE GLUCOSE 2+ (NEGATIVE); URINE KETONE Negative (NEGATIVE); URINE LEUKOCYTE ESTERASE Trace (NEGATIVE); URINE NITRATE Negative (NEGATIVE); URINE PROTEIN(semi-quant) Negative (NEGATIVE); URINE RBC 0-2 /hpf; URINE UROBILINOGEN Negative (NEGATIVE)
--- NOTE | 2018-06-15 18:47 | NUR ---
Pt had uneventful day. Continued to have bloody loose stools through the day, reports stools q10m. Pt has not had any nausea. Reports intermittent LL abdominal pain. PRN pain medications given. POC discussed with both patient and his , who verbalizes understanding.
--- NOTE | 2018-06-15 19:50 | NUR ---
Patient resting in bed watching tv. Assessment completed, VSS, denies pain. Alert and oriented x4. IV site flushed and free of complications. On 2 L oxygen via NC. No further needs at this time.
--- NOTE | 2018-06-15 22:06 | NUR ---
Patient called nurse and TRAY LINE SUPERVISOR into room, experiencing some nausea/vomiting. About 50 mls of emesis. Patient given zofran.
--- NOTE | 2018-06-16 01:00 | NUR ---
Patient experiencing pain in abdomen /- aching. Given 2 mg IV morphine and a warm blanket. Patient now resting in bed and states he is feeling better.
[2018-06-16 03:09] VITALS: BP 142/65; PULSE 59; TEMP 98.6
--- NOTE | 2018-06-16 05:26 | NUR ---
Patient had a mainly uneventful night, some abdominal pain, given IV morphine x2 last night for pain 7-12/15. 2 episodes of nausea- controlled with IV zofran. Ambulatory, alert and oriented x4.
[2018-06-16 06:38] LABS: HEMATOCRIT 41.5 % (42.0-52.0); HEMOGLOBIN 13.8 g/dl (13.5-18.0); MEAN CELL VOLUME 97 fl (80.0-100.0); MEAN CORPUSCULAR HEMOGLOBIN 32 pg (27.0-31.0); MEAN CORPUSCULAR HGB CONC 33 g/dl (33.0-37.0); PLATELET COUNT 227 K/mm3 (130-400); REDCELL DISTRIBUTION WIDTH-CV 13.6 % (11.5-14.5)
[2018-06-16 06:47] LABS: CALCIUM 9.1 mg/dL (8.4-10.2); CREATININE, serum 0.82 mg/dL (0.66-1.25); POTASSIUM 3.2 mmol/L (3.4-5.0)
[2018-06-16 07:05] LABS: BAND 1 % (0-10); EOSINOPHIL 1 % (0-4); LYMPHOCYTE 12 % (20.0-51.0); NEUTROPHILS 80 % (42.0-75.2)
[2018-06-16 07:06] LABS: PLATELET ESTIMATE NORMAL (NORMAL)
--- NOTE | 2018-06-16 07:37 | NUR ---
Patient is resting in bed, verbalizes he is having pain and has been unable to get comfortable. PRN norco administered. Has no other complaints otherwise.
[2018-06-16 09:01] VITALS: BP 136/71; PULSE 62; TEMP 98.3
--- NOTE | 2018-06-16 13:01 | NUR ---
Gear Tester offered prayer with patient and visited.
[2018-06-16 13:24] VITALS: BP 112/62; PULSE 59; TEMP 97.8
[2018-06-16 16:40] VITALS: BP 114/53; PULSE 61; TEMP 98.5
--- NOTE | 2018-06-16 17:43 | NUR ---
Patient sitting up in bed watching TV. Is apprehensive about ordering evening meal due to having diarrhea after noon meal. Did tell patient that he could order liquids again and he felt that would be a better option for the time. Stated he set the alarm on his phone for 6:30 to remind him to call kitchen. Did say he would call nursing for a dose of PRN zofran when he orders food so he can "stay ahead of the game." States is still having some pain. Was informed he has PRN pain pills and he declines at this time because he would like to give his stomach "a rest." Call light is within reach, no further needs voiced.
--- NOTE | 2018-06-16 19:35 | NUR ---
Patient sitting up in bed watching tv, just finished dinner. Assessment completed, VSS, denies pain at this time, no nausea. Rounded abdomen, no pain right now. Ambulatory, alert and oriented x4. No further needs at this time.
[2018-06-16 20:00] VITALS: BP 125/53; PULSE 57; TEMP 98.8
--- NOTE | 2018-06-17 00:31 | NUR ---
Patient watcing TV, requesting warm blanket. Given blanket and patient now resting in bed.
[2018-06-17 01:01] VITALS: BP 101/63; PULSE 56; TEMP 97.6
--- NOTE | 2018-06-17 04:05 | NUR ---
Patient c/o pain in abdomen 6-11/14. Given NORCO and zofran.
[2018-06-17 04:23] VITALS: BP 127/62; PULSE 65; TEMP 98.1
--- NOTE | 2018-06-17 05:09 | NUR ---
Patient slept on/off this shift. Reported pain 6-11/14 early this AM relieved with PO norco, also requested zofran as patient becomes nauseated easily. Ambulatory, alert and oriented x4.
[2018-06-17 07:58] LABS: HEMATOCRIT 42.6 % (42.0-52.0); HEMOGLOBIN 14.2 g/dl (13.5-18.0); MEAN CELL VOLUME 96 fl (80.0-100.0); MEAN CORPUSCULAR HEMOGLOBIN 32 pg (27.0-31.0); MEAN CORPUSCULAR HGB CONC 33 g/dl (33.0-37.0); PLATELET COUNT 248 K/mm3 (130-400); RED BLOOD COUNT 4.43 M/mm3 (4.20-5.60); REDCELL DISTRIBUTION WIDTH-CV 13.6 % (11.5-14.5)
[2018-06-17 08:10] LABS: CREATININE, serum 1.02 mg/dL (0.66-1.25)
[2018-06-17 08:11] VITALS: BP 137/64; PULSE 61; TEMP 98.3
[2018-06-17 08:27] LABS: BAND 1 % (0-10); EOSINOPHIL 3 % (0-4); LYMPHOCYTE 20 % (20.0-51.0); NEUTROPHILS 68 % (42.0-75.2); PLATELET ESTIMATE NORMAL (NORMAL)
[2018-06-17 08:34] LABS: POTASSIUM 2.9 mmol/L (3.4-5.0)
--- NOTE | 2018-06-17 09:00 | NUR ---
Patient sitting up on side of bed. Reports he just got finished working with physical therapy. He stated after activity, his stomach did start to bother him a little but nothing that requires pain medication. Did order breakfast. Declined tresiba insulin. No further needs verbalized. Call light is within reach.
[2018-06-17 11:12] VITALS: BP 128/60; PULSE 65; TEMP 97.8
[2018-06-17] MEDS ORDERED: FLAGYL500 MG PO (13:00)
[2018-06-17] MEDS ORDERED: CIPRO 500MG TA500 MG PO (13:00)
--- NOTE | 2018-06-17 13:15 | NUR ---
SW consulted for O2 setup. Educated patient of resources. Patient decided to use [facility]. Patient was educated that he would need 02 prior to leaving. Patient declined and stated that they wanted to stay with the same company. Patient was educated that [employer] is closed until tommorrow. Patient insisted that they would be fine. Patient signed choice form and JESSICA faxed order to pharmacy at for o2 script. No thing further.,
[2018-06-17] MEDS ORDERED: ZOFRAN ODT4 MG PO (13:46)
--- NOTE | 2018-06-17 17:34 | NUR ---
Kirsten discharged home with at 1615. Assisted to private vehicle via wheelchair. Patient and verbalized understanding of new medication orders and discharge instructions. stated she already has picked up the new prescriptions from the pharmacy.
[2018-06-17 22:10] LABS: COLLECTION METHOD CLEAN CATCH
[2018-06-17 22:23] LABS: MUCOUS Present /lpf; PH 7 (5-8); SQUAMOUS EPITHELIAL None Seen /hpf; URINE APPEARANCE Clear; URINE BACTERIA Rare /hpf; URINE BILIRUBIN Negative (NEGATIVE); URINE BLOOD Negative (NEGATIVE); URINE COLOR Yellow; URINE GLUCOSE Negative (NEGATIVE); URINE KETONE Negative (NEGATIVE); URINE LEUKOCYTE ESTERASE Negative (NEGATIVE); URINE NITRATE Negative (NEGATIVE); URINE PROTEIN(semi-quant) 1+ (NEGATIVE); URINE RBC None Seen /hpf; URINE UROBILINOGEN Negative (NEGATIVE)
== END 2018-06-17 16:15 | disposition home or self-care (01) | DRG 392 ==
LOC: COL.ER 23:31 → ICU 06-13 02:04 → MEDICAL 06-13 02:04
PROVIDERS: Emergency Medicine; Hospitalist; Physician Assistant; ADMIT Hospitalist
DX: A09 Infectious gastroenteritis and colitis, unspecified (principal); K92.1 Melena; I12.9 Hypertensive chronic kidney disease with stage 1 through stage 4 chronic kidney disease, or unspecified chronic kidney disease; E11.22 Type 2 diabetes mellitus with diabetic chronic kidney disease; N18.9 Chronic kidney disease, unspecified; Z79.4 Long term (current) use of insulin; J44.9 Chronic obstructive pulmonary disease, unspecified; F31.9 Bipolar disorder, unspecified; I25.10 Atherosclerotic heart disease of native coronary artery without angina pectoris; Z95.810 Presence of automatic (implantable) cardiac defibrillator; I73.9 Peripheral vascular disease, unspecified; Z86.73 Personal history of transient ischemic attack (TIA), and cerebral infarction without residual deficits; E78.5 Hyperlipidemia, unspecified; Z87.891 Personal history of nicotine dependence; G89.29 Other chronic pain; G47.33 Obstructive sleep apnea (adult) (pediatric); R06.89 Other abnormalities of breathing; D64.9 Anemia, unspecified
CPT/HCPCS: 99232-AI; 99233-AI; 99239; A9284; G0378; J0744; J1170; J1650; J1815; J1940; J2270; J2405; J3475; J7030; Q9967

== ENCOUNTER → 2018-07-19 | Outpatient (CLI) | payer BC, MEDICARE ==
[~2018-07-19] MED LIST changes: +CIPRO 500MG TA500 MG PO; +FLAGYL500 MG PO; +LAMICTAL 100MG100 MG PO; +LASIX 20MG TABL20 MG PO; +ZOFRAN ODT4 MG PO
== END ==
LOC: BHSO 15:26
DX: F33.41 Major depressive disorder, recurrent, in partial remission (principal)
CPT/HCPCS: G0463

== ENCOUNTER 2018-08-01 18:27 | Emergency (ER) | payer BC, MEDICARE ==
[2004-09-22 09:23] VITALS: BP 152/87
[~2018-08-01] VITALS: Ht 177.8 cm; Wt 93.6 kg
[2018-08-01 18:31] VITALS: TEMP 98.2
[2018-08-01 18:53] LABS: BASO % 0.3 % (0.0-2.0); EOS # 0.2 (0.0-0.7); EOS % 2.3 % (0-4.0); GRAN # 6.4 (1.4-6.5); GRAN % 67.5 % (42.2-75.2); HEMATOCRIT 46.8 % (42.0-52.0); HEMOGLOBIN 15.5 g/dl (13.5-18.0); LYMPH # 1.6 (1.2-3.4); LYMPH % 17.2 % (20.0-51.0); MEAN CELL VOLUME 96 fl (80.0-100.0); MEAN CORPUSCULAR HEMOGLOBIN 32 pg (27.0-31.0); MEAN CORPUSCULAR HGB CONC 33 g/dl (33.0-37.0); MEAN PLATELET VOLUME 9.6 fl (7.4-10.4); MONO # 1.2 (0.1-0.6); MONO % 12.5 % (1.7-9.3); PLATELET COUNT 242 K/mm3 (130-400); RED BLOOD COUNT 4.87 M/mm3 (4.20-5.60); REDCELL DISTRIBUTION WIDTH-CV 13.4 % (11.5-14.5)
[2018-08-01 18:58] LABS: PROTHROMBIN TIME 10.9 SECONDS (9.7-12.8)
[2018-08-01 19:01] LABS: ALANINE AMINOTRANSFERASE 47 U/L (21-72); ALBUMIN 4.2 gm/dL (3.5-5.0); ALKALINE PHOSPHATASE 104 U/L (50-136); ANION GAP 12 mmol/L (7-16); AST,SGOT 40 U/L (15-37); BILIRUBIN,TOTAL 0.4 mg/dL (0.0-1.0); BLOOD UREA NITROGEN 15 mg/dL (9-20); CALCIUM 9.4 mg/dL (8.4-10.2); CARBON DIOXIDE 28 mmol/L (22-30); CHLORIDE 101 mmol/L (98-107); CREATININE, serum 0.95 (0.66-1.25); GLUCOSE 74 mg/dL (74-106); PARTIAL THROMBOPLASTIN TIME 35.6 SECONDS (26.0-37.0); SODIUM 141 mmol/L (137-145); TOTAL PROTEIN 7.3 gm/dL (6.4-8.2)
[2018-08-01 19:12] LABS: TROPONIN-I < 0.012 ng/mL (0.000-0.035)
[2018-08-01 20:38] VITALS: BP 172/88; PULSE 60
== END 2018-08-01 20:38 | disposition home or self-care (01) ==
LOC: COL.ER 18:27
PROVIDERS: Family Medicine
DX: R07.89 Other chest pain (principal); E11.9 Type 2 diabetes mellitus without complications; I10 Essential (primary) hypertension; Z79.4 Long term (current) use of insulin; Z79.51 Long term (current) use of inhaled steroids; Z79.82 Long term (current) use of aspirin

== ENCOUNTER → 2018-10-16 | Outpatient (CLI) | payer BC, MEDICARE | LOC: BHSO 14:58 | DX: F41.1 Generalized anxiety disorder (principal) | CPT/HCPCS: G0463 ==

== ENCOUNTER → 2018-11-13 | Outpatient (CLI) | payer BC, MEDICARE | LOC: DIA.ED 15:11 → SUN.DIA 15:49 → DIA.ED 15:59 | DX: E11.9 Type 2 diabetes mellitus without complications (principal); E78.5 Hyperlipidemia, unspecified; I10 Essential (primary) hypertension; Z79.4 Long term (current) use of insulin; E66.9 Obesity, unspecified | CPT/HCPCS: G0108 ==

== ENCOUNTER → 2019-01-22 | Outpatient (CLI) | payer BC, MEDICARE | LOC: BHSO 15:19 | DX: F41.1 Generalized anxiety disorder (principal) | CPT/HCPCS: G0463 ==

== ENCOUNTER → 2019-06-17 | Outpatient (CLI) | payer BC, MEDICARE | LOC: DIA.ED 14:38 | DX: E11.9 Type 2 diabetes mellitus without complications (principal); Z79.4 Long term (current) use of insulin; I25.10 Atherosclerotic heart disease of native coronary artery without angina pectoris; I10 Essential (primary) hypertension; E78.5 Hyperlipidemia, unspecified | CPT/HCPCS: G0108 ==

== ENCOUNTER 2019-10-02 08:02 | Day surgery (SDC) | payer BC, MEDICARE ==
[2004-09-22 09:23] VITALS: BP 152/87
[2019-10-02] VITALS (12 sets, daily range): BP systolic 108–145; BP diastolic 57–83; PULSE 60; TEMP 97.4–97.6
[~2019-10-02] VITALS: Ht 177.8 cm; Wt 105.9 kg
[2019-10-02 09:03] LABS: HEMATOCRIT 46.9 % (42.0-52.0); HEMOGLOBIN 15.1 g/dl (13.5-18.0); MEAN CELL VOLUME 97 fl (80.0-100.0); MEAN CORPUSCULAR HEMOGLOBIN 31 pg (27.0-31.0); MEAN CORPUSCULAR HGB CONC 32 g/dl (33.0-37.0); MEAN PLATELET VOLUME 10.5 fl (7.4-10.4); PLATELET COUNT 141 K/mm3 (130-400); RED BLOOD COUNT 4.86 M/mm3 (4.20-5.60); REDCELL DISTRIBUTION WIDTH-CV 15.2 % (11.5-14.5)
[2019-10-02 09:19] LABS: PROTHROMBIN TIME 10.8 SECONDS (9.7-12.8)
[2019-10-02] MEDS ORDERED: FLOMAX 0.40.4 MG/CAP PO (09:20)
[2019-10-02 09:21] LABS: PARTIAL THROMBOPLASTIN TIME 20.7 SECONDS (26.0-37.0)
[2019-10-02] MEDS ORDERED: NITROSTAT0.4 MG/TAB SL (09:22)
[2019-10-02] MEDS ORDERED: TYLENOL PM EXTR1 TA1 PO (09:23)
[2019-10-02] MEDS ORDERED: TYLENOL 325MG325 MG PO (09:23)
[2019-10-02 09:24] LABS: CALCIUM 9.3 mg/dL (8.4-10.2); CREATININE, serum 1.61 (0.66-1.25); POTASSIUM 4.8 mmol/L (3.4-5.0)
[2019-10-02] MEDS ORDERED: MUCINEX DM 60 M1 TER PO (09:24)
[2019-10-02] MEDS ORDERED: BENADRYL25 M2 PO (09:24)
[2019-10-02] MEDS ORDERED: SENEXON-S 50-81 EACH PO (09:25)
[2019-10-02] MEDS ORDERED: COLACE 100100 MG/CAP PO (09:25)
[2019-10-02] MEDS ORDERED: [UNRECOGNIZED DRUG - OTHER] (09:26)
[2019-10-02] MEDS ORDERED: FIBERCON (09:27)
[2019-10-02] MEDS ORDERED: TEMOVATE0.05% TP (09:27)
[2019-10-02] MEDS ORDERED: NIZORAL CREAM15 GM TP (09:27)
[2019-10-02] MEDS ORDERED: EVOCLIN50GM TOP (09:28)
[2019-10-02] MEDS ORDERED: TRIAMCINOLONE A15 G2 TP (09:28)
[2019-10-02] MEDS ORDERED: VOGELXO (09:29)
--- NOTE | 2019-10-02 10:04 | NUR ---
SEE MERGE DOCUMENTATION FOR MEDICATION ADMINISTRATION TIMES AND INTRA/POST PROCEDURE SEDATION ASSESSMENTS.
[2019-10-02] MEDS ORDERED: PACERONE200 MG PO (10:56)
--- NOTE | 2019-10-02 11:01 | NUR ---
PT RETURNED FROM [employer], BEDSIDE REPORT GIVEN BY SALLY DUKE IN [employer]. NO INTERVENTION OR SEDATION GIVEN. SALLY SANTANA ORDERED BILATERAL GILBERTO'S AND ECHO. NOTIFIED BY GUIDO MCGARRY IN RADIOLOGY THAT WE DO NOT DO BILATERAL GILBERTO'S AT THIS FACILITY. THIS RN NOTIFIED SALLY SANTANA WITH DR DUARTE'S OFFICE. SHE STATED THEY WILL COORDINATE THE BILATERAL GILBERTO PROCEDURE OUTPT.
--- NOTE | 2019-10-02 14:30 | NUR ---
PT TOLERATED INTAKE WITH NO N/V. PT VOIDED WITH NO COMPLICATIONS. RPZEQM=152. PT STATED HE DOES WHERE OXYGEN AT HOME DURING THE DAY PRN. 5MLS OF AIR WAS RELEASED FROM TR BAND AT 1315, ACTIVE BLEEDING OCCURED. THIS RN PUT 5MLS OF AIR BACK INTO THE TR BAND AND WAITED 30 MINUTES. 1415 AIR WAS RELEASED, NO BLEEDING AND NO HEMATOMA NOTED. 2X2 GAUZE AND COBAN APPLIED RIGHT RADIAL SITE. DISCHARGE INSTRUCTIONS REVIEWED WITH PT. PT VOICED UNDERSTANDING. THIS RN CALLED , JULIO CESAR, AND REVIEWED DISCHARGE AND RECOVERY STATUS WELL. VOICED UNDERSTANDING. PT AMBULATED IN AND AROUND THE UNIT WITH NO COMPLICATIONS. PT WILL BE SEEING DR AMADOR IN REGARDS TO HIS LEFT FOOT. IV WAS DISCONTINUED WITH CATHETER TIP INTACT, NO PHLEBITIS OR INFILTRATION. PT WAS DISCHARGED VIA WHEELCHAIR TO THE CARE OF SPOUSE WITH DISCHARGE INSTRUCTIONS IN HAND.
== END 2019-10-02 14:30 | disposition home or self-care (01) ==
LOC: COL.CAR 08:02
PROVIDERS: Internal Medicine Cardiovascular Disease
DX: I25.119 Atherosclerotic heart disease of native coronary artery with unspecified angina pectoris (principal); I10 Essential (primary) hypertension; I47.2 Ventricular tachycardia; E11.9 Type 2 diabetes mellitus without complications; I08.1 Rheumatic disorders of both mitral and tricuspid valves; I73.9 Peripheral vascular disease, unspecified; E78.2 Mixed hyperlipidemia; J44.9 Chronic obstructive pulmonary disease, unspecified; F31.9 Bipolar disorder, unspecified; Z86.79 Personal history of other diseases of the circulatory system; Z79.4 Long term (current) use of insulin; Z86.73 Personal history of transient ischemic attack (TIA), and cerebral infarction without residual deficits; Z95.810 Presence of automatic (implantable) cardiac defibrillator; Z88.8 Allergy status to other drugs, medicaments and biological substances; Z87.891 Personal history of nicotine dependence; Z80.3 Family history of malignant neoplasm of breast; Z80.8 Family history of malignant neoplasm of other organs or systems; Z82.49 Family history of ischemic heart disease and other diseases of the circulatory system; Z80.42 Family history of malignant neoplasm of prostate
CPT/HCPCS: J1644; Q9967

== ENCOUNTER → 2019-11-04 | Outpatient (CLI) | payer BC, MEDICARE ==
[~2019-11-04] MED LIST changes: +EVOCLIN50GM TOP; +FLOMAX 0.40.4 MG/CAP PO; +NITROSTAT0.4 MG/TAB SL; +NIZORAL CREAM15 GM TP; +PACERONE200 MG PO; +SENEXON-S 50-81 EACH PO; +TEMOVATE0.05% TP; +TRIAMCINOLONE A15 G2 TP; +VOGELXO; +[UNRECOGNIZED DRUG - OTHER]
== END ==
LOC: BHSO 13:36
DX: F41.1 Generalized anxiety disorder (principal)
CPT/HCPCS: G0463

== ENCOUNTER 2020-07-06 16:08 | Emergency (ER) | payer BC, MEDICARE ==
[2004-09-22 09:23] VITALS: BP 152/87
[~2020-07-06] VITALS: Ht 157.5 cm; Wt 97.3 kg
[~2020-07-06 16:08] MED LIST changes: +TESSALON P100 MG/CAP; -[UNRECOGNIZED DRUG - OTHER]
[2020-07-06 16:16] VITALS: TEMP 98
[2020-07-06 17:17] LABS: BASO % 0.2 % (0.0-2.0); EOS # 0.1 (0.0-0.7); EOS % 0.9 % (0-4.0); GRAN # 6.5 (1.4-6.5); GRAN % 75.1 % (42.2-75.2); HEMATOCRIT 51.8 % (42.0-52.0); HEMOGLOBIN 17.2 g/dl (13.5-18.0); LYMPH # 1.2 (1.2-3.4); LYMPH % 13.5 % (20.0-51.0); MEAN CELL VOLUME 98 fl (80.0-100.0); MEAN CORPUSCULAR HEMOGLOBIN 33 pg (27.0-31.0); MEAN CORPUSCULAR HGB CONC 33 g/dl (33.0-37.0); MONO # 0.9 (0.1-0.6); PLATELET COUNT 178 K/mm3 (130-400); REDCELL DISTRIBUTION WIDTH-CV 14.3 % (11.5-14.5)
[2020-07-06 17:24] LABS: ALANINE AMINOTRANSFERASE 82 U/L (4-49); ALBUMIN 4.3 gm/dL (3.5-5.0); ALKALINE PHOSPHATASE 97 U/L (50-136); ANION GAP 10 mmol/L (7-16); AST,SGOT 44 U/L (15-37); BILIRUBIN,TOTAL 0.6 mg/dL (0.0-1.0); BLOOD UREA NITROGEN 20 mg/dL (9-20); CALCIUM 9.5 mg/dL (8.4-10.2); CARBON DIOXIDE 24 mmol/L (22-30); CHLORIDE 104 mmol/L (98-107); GLUCOSE 110 mg/dL (74-106); POTASSIUM 3.9 mmol/L (3.4-5.0); SODIUM 138 mmol/L (137-145)
[2020-07-06] MEDS ORDERED: VITAMINC1000TA PO (17:36)
[2020-07-06] MEDS ORDERED: VITAMIN D 50,1.25 MG PO (17:37)
[2020-07-06] MEDS ORDERED: GALZIN50 MG PO (17:37)
[2020-07-06] MEDS ORDERED: NEURONTIN300 MG/CAP PO (17:38)
[2020-07-06 17:42] LABS: TROPONIN-I < 0.012 ng/mL (0.000-0.035)
[2020-07-06 18:03] LABS: COLLECTION METHOD CLEAN CATCH
[2020-07-06 18:16] LABS: MUCOUS Present /lpf; PH 5 (5-8); SQUAMOUS EPITHELIAL None Seen /hpf; URINE APPEARANCE Hazy; URINE BACTERIA None Seen /hpf; URINE BILIRUBIN Negative (NEGATIVE); URINE BLOOD Negative (NEGATIVE); URINE COLOR Yellow; URINE GLUCOSE Negative (NEGATIVE); URINE KETONE Negative (NEGATIVE); URINE LEUKOCYTE ESTERASE Trace (NEGATIVE); URINE NITRATE Negative (NEGATIVE); URINE PROTEIN(semi-quant) 2+ (NEGATIVE); URINE RBC 0-2 /hpf; URINE UROBILINOGEN Negative (NEGATIVE)
[2020-07-06] MEDS ORDERED: NORVASC 5MG5 MG/TAB PO (18:46)
[2020-07-06] MEDS ORDERED: CEPHALEXIN500 M1 PO (18:51)
[2020-07-06 19:05] VITALS: BP 200/103; PULSE 60
== END 2020-07-06 19:05 | disposition home or self-care (01) ==
LOC: COL.ER 16:08
PROVIDERS: Emergency Medicine
DX: I10 Essential (primary) hypertension (principal); F31.9 Bipolar disorder, unspecified; J44.9 Chronic obstructive pulmonary disease, unspecified; E11.9 Type 2 diabetes mellitus without complications; E78.5 Hyperlipidemia, unspecified; I13.10 Hypertensive heart and chronic kidney disease without heart failure, with stage 1 through stage 4 chronic kidney disease, or unspecified chronic kidney disease; N18.9 Chronic kidney disease, unspecified; F32.9 Major depressive disorder, single episode, unspecified; Z95.810 Presence of automatic (implantable) cardiac defibrillator; Z86.73 Personal history of transient ischemic attack (TIA), and cerebral infarction without residual deficits; Z79.4 Long term (current) use of insulin; Z88.6 Allergy status to analgesic agent; Z95.9 Presence of cardiac and vascular implant and graft, unspecified; Z95.818 Presence of other cardiac implants and grafts; Z79.82 Long term (current) use of aspirin; Z79.02 Long term (current) use of antithrombotics/antiplatelets

== ENCOUNTER → 2020-07-16 | Outpatient (CLI) | payer BC, MEDICARE ==
[~2020-07-16] MED LIST changes: +CORDARONE200 MG/TAB PO; +DAYVIGO5 MG PO; +GALZIN50 MG PO; +LINZESS72 MCG PO; +MIRALAX PA17 GM/Dose PO; +NEURONTIN300 MG/CAP PO; +VITAMIN D 50,1.25 MG PO; +VITAMINC1000TA PO; +ZANAFLEX 4MG TAB4 MG PO
== END ==
LOC: COL.VAS
DX: I67.9 Cerebrovascular disease, unspecified (principal)

== ENCOUNTER → 2020-07-21 | Outpatient (CLI) | payer BC, MEDICARE | LOC: COL.RAD 07-20 11:15 | DX: G31.9 Degenerative disease of nervous system, unspecified (principal); I67.9 Cerebrovascular disease, unspecified | CPT/HCPCS: A9585 ==

== ENCOUNTER 2020-09-03 14:38 | Observation (INO) | payer BC, MEDICARE ==
[2004-09-22 09:23] VITALS: BP 152/87
[~2020-09-03] VITALS: Ht 157.5 cm; Wt 105.0 kg
[~2020-09-03 14:38] MED LIST changes: -CORDARONE200 MG/TAB PO; -DAYVIGO5 MG PO; -LINZESS72 MCG PO; -MIRALAX PA17 GM/Dose PO; -ZANAFLEX 4MG TAB4 MG PO
[2020-09-03 15:36] LABS: BASO % 0.2 % (0.0-2.0); EOS # 0.1 (0.0-0.7); GRAN # 8.7 (1.4-6.5); GRAN % 81.3 % (42.2-75.2); HEMOGLOBIN 16.8 g/dl (13.5-18.0); LYMPH # 0.9 (1.2-3.4); LYMPH % 8.7 % (20.0-51.0); MEAN CELL VOLUME 99 fl (80.0-100.0); MEAN CORPUSCULAR HEMOGLOBIN 32 pg (27.0-31.0); MEAN CORPUSCULAR HGB CONC 33 g/dl (33.0-37.0); MONO # 0.9 (0.1-0.6); MONO % 8.5 % (1.7-9.3); PLATELET COUNT 191 K/mm3 (130-400); RED BLOOD COUNT 5.18 M/mm3 (4.20-5.60); REDCELL DISTRIBUTION WIDTH-CV 14.2 % (11.5-14.5)
[2020-09-03 15:50] LABS: ALBUMIN 4.4 gm/dL (3.5-5.0); BILIRUBIN,TOTAL 0.5 mg/dL (0.0-1.0); C-REACTIVE PROTEIN 0.6 mg/dL (0.0-0.9); CALCIUM 9.5 mg/dL (8.4-10.2); CREATININE, serum 1.18 (0.66-1.25); TOTAL PROTEIN 7.5 gm/dL (6.4-8.2)
[2020-09-03 15:53] LABS: POTASSIUM 4.8 mmol/L (3.4-5.0)
[2020-09-03 16:12] LABS: COLLECTION METHOD CLEAN CATCH
[2020-09-03 16:19] LABS: PH 6 (5-8); SQUAMOUS EPITHELIAL None Seen /hpf; URINE APPEARANCE Clear; URINE BACTERIA None Seen /hpf; URINE BILIRUBIN Negative (NEGATIVE); URINE BLOOD Negative (NEGATIVE); URINE COLOR Straw; URINE GLUCOSE Negative (NEGATIVE); URINE KETONE Negative (NEGATIVE); URINE LEUKOCYTE ESTERASE Trace (NEGATIVE); URINE NITRATE Negative (NEGATIVE); URINE PROTEIN(semi-quant) Negative (NEGATIVE); URINE RBC 0-2 /hpf; URINE UROBILINOGEN Negative (NEGATIVE)
[2020-09-03] MEDS ORDERED: PACERONE200 MG PO (17:24)
[2020-09-03 19:02] LABS: CLOSTRIDIUM DIFF A/B NEG
[2020-09-03 19:03] LABS: CLOSTRIDIUM DIFF A/B INTERP No C.diff present
--- NOTE | 2020-09-03 19:20 | NUR ---
Pt arrived via W/C to room 324.
[2020-09-03] MEDS ORDERED: LINZESS72 MCG PO (20:22)
[2020-09-03] MEDS ORDERED: ZANAFLEX 4MG TAB4 MG PO (20:22)
[2020-09-03] MEDS ORDERED: DAYVIGO5 MG PO (20:23)
[2020-09-03] MEDS ORDERED: NORCO 325 MG-101 TAB PO (20:25)
[2020-09-03] MEDS ORDERED: LASIX 20MG TABL20 MG PO (20:25)
--- NOTE | 2020-09-03 20:32 | NUR ---
COMPLAINS OF LLQ ABD PAIN/CRAMPING, MEDICATED WITH DILAUDID 0.5MG IVP AT THIS TIME. IV FLAGYL AND IV ROCEPHIN GIVEN. SL TO LEFT AC, FLUSHES WELL. TAKING CLEAR LIQUIDS WITHOUT PROBLEM. HAS HOME CPAP AT BEDSIDE. STOOLS REMAIN BLOODY.
[2020-09-03 22:05] LABS: HEMATOCRIT 52.7 % (42.0-52.0)
[2020-09-03 23:42] VITALS: BP 157/58; PULSE 58; TEMP 97.9
--- NOTE | 2020-09-04 | NUR ---
MEDICATED WITH DILAUDID 0.5MG IVP FOR LLQ PAIN.
--- NOTE | 2020-09-04 02:20 | NUR ---
COMPLAINS OF LLQ PAIN, DILAUDID 0.5MG IVP GIVEN.
[2020-09-04 03:33] VITALS: BP 126/51; PULSE 59; TEMP 98.8
--- NOTE | 2020-09-04 05:14 | NUR ---
PT COMPLAINS OF LLQ ABD PAIN/CRAMPING. DILAUDID 0.5MG IVP GIVEN. STILL HAVING BLOODY STOOLS. IV FLAGYL INFUSING AT THIS TIME.
[2020-09-04] MEDS ORDERED: CORDARONE200 MG/TAB PO (05:31)
[2020-09-04 06:47] LABS: BASO % 0.1 % (0.0-2.0); EOS # 0.2 (0.0-0.7); EOS % 2.2 % (0-4.0); GRAN # 6.1 (1.4-6.5); GRAN % 71.7 % (42.2-75.2); HEMATOCRIT 51.7 % (42.0-52.0); HEMOGLOBIN 16.2 g/dl (13.5-18.0); LYMPH # 1.2 (1.2-3.4); LYMPH % 13.9 % (20.0-51.0); MEAN CELL VOLUME 101 fl (80.0-100.0); MEAN CORPUSCULAR HEMOGLOBIN 32 pg (27.0-31.0); MEAN CORPUSCULAR HGB CONC 31 g/dl (33.0-37.0); MEAN PLATELET VOLUME 9.9 fl (7.4-10.4); MONO % 11.9 % (1.7-9.3); PLATELET COUNT 183 K/mm3 (130-400); RED BLOOD COUNT 5.12 M/mm3 (4.20-5.60); REDCELL DISTRIBUTION WIDTH-CV 14.5 % (11.5-14.5)
[2020-09-04 06:56] LABS: CALCIUM 8.8 mg/dL (8.4-10.2); CREATININE, serum 1.05 (0.66-1.25); POTASSIUM 4.3 mmol/L (3.4-5.0)
[2020-09-04 07:09] VITALS: BP 152/55; PULSE 59; TEMP 97.5
--- NOTE | 2020-09-04 11:45 | NUR ---
Patient alert and oriented, answers questions appropriately. See assessment. Abdomen soft, non distended. +Flatus. +Bowel movement. +Bloody stool noted in toilet. C/o occasional abdominal cramping. No other c/o at this time.
[2020-09-04 11:52] VITALS: BP 138/69; PULSE 60; TEMP 97.7
--- NOTE | 2020-09-04 13:02 | NUR ---
Initial visit; Patient thanked Marine Mechanic for looking in on him, visiting, listening and offering prayer and God's blessings. Marine Mechanic will keep Max in her prayers and will check on him while he is hospitalized.
[2020-09-04 15:54] VITALS: BP 161/70; PULSE 58; TEMP 97.6
[2020-09-04 20:36] VITALS: BP 149/56; PULSE 58; TEMP 97.7
--- NOTE | 2020-09-04 21:20 | NUR ---
PT READY FOR HS MEDS. ASKING FOR IV DILAUDID, HAD DISCUSSION REGARDING ORAL AND IV NARCOTICS AND EFFECT ON SLOWING THE BOWELS. REPORTS LLQ ABD PAIN/CRAMPING CONTINUES, IS NOT PASSING GAS. ABD DISTENDED, HYPOACTIVE BOWEL SOUNDS. ENCOURAGED AMBULATION. NO STOOLS SO FAR THIS SHIFT. GABAPENTIN GIVEN FOR SLEEP. LEFT AC SL FLUSHES WELL.
--- NOTE | 2020-09-05 | NUR ---
DENIES NEED FOR PAIN MEDS AT THIS TIME. CPAP ON.
[2020-09-05 01:24] VITALS: BP 154/79; PULSE 60; TEMP 97.4
[2020-09-05 04:13] VITALS: BP 153/69; PULSE 60; TEMP 98.4
--- NOTE | 2020-09-05 05:30 | NUR ---
IV FLAGYL INFUSING WITHOUT PROBLEM. PT RESTING WELL, NO STOOLS THIS SHIFT.
[2020-09-05 07:51] VITALS: BP 167/79; PULSE 67; TEMP 97.5
[2020-09-05 08:01] LABS: HEMATOCRIT 49.8 % (42.0-52.0); HEMOGLOBIN 15.9 g/dl (13.5-18.0); MEAN CELL VOLUME 101 fl (80.0-100.0); MEAN CORPUSCULAR HEMOGLOBIN 32 pg (27.0-31.0); MEAN CORPUSCULAR HGB CONC 32 g/dl (33.0-37.0); MEAN PLATELET VOLUME 10.4 fl (7.4-10.4); PLATELET COUNT 164 K/mm3 (130-400); RED BLOOD COUNT 4.94 M/mm3 (4.20-5.60); REDCELL DISTRIBUTION WIDTH-CV 14.4 % (11.5-14.5)
[2020-09-05 08:25] LABS: CALCIUM 9.1 mg/dL (8.4-10.2); CREATININE, serum 0.94 (0.66-1.25); POTASSIUM 4.2 mmol/L (3.4-5.0)
[2020-09-05] MEDS ORDERED: FLAGYL500 MG PO (08:53)
[2020-09-05] MEDS ORDERED: CIPRO 500MG TA500 MG PO (08:53)
[2020-09-05] MEDS ORDERED: MIRALAX PA17 GM/Dose PO (08:57)
--- NOTE | 2020-09-05 12:10 | NUR ---
Pt resting with eyes closed, even non labored breathing. at bedside
[2020-09-05 12:20] VITALS: BP 173/81; PULSE 60; TEMP 97.9
--- NOTE | 2020-09-05 12:48 | NUR ---
Pt states that he is ready for discharge and wants to eat lunch at home. Reviewed discharge paperwork with pt and his . Gave instructions to make follow up appointment on Monday. INT in left forearm discontinued. Pt escorted out via wheelchair
== END 2020-09-05 12:49 | disposition home or self-care (01) ==
LOC: COL.ER 14:38 → SURG 17:34
PROVIDERS: Nurse Practitioner; Physician Assistant; ADMIT Hospitalist
DX: A09 Infectious gastroenteritis and colitis, unspecified (principal); K59.03 Drug induced constipation; I10 Essential (primary) hypertension; G89.29 Other chronic pain; G47.00 Insomnia, unspecified; J44.9 Chronic obstructive pulmonary disease, unspecified; G47.33 Obstructive sleep apnea (adult) (pediatric); K92.2 Gastrointestinal hemorrhage, unspecified; E78.5 Hyperlipidemia, unspecified; I12.9 Hypertensive chronic kidney disease with stage 1 through stage 4 chronic kidney disease, or unspecified chronic kidney disease; N18.9 Chronic kidney disease, unspecified; E11.22 Type 2 diabetes mellitus with diabetic chronic kidney disease; F31.9 Bipolar disorder, unspecified; F98.8 Other specified behavioral and emotional disorders with onset usually occurring in childhood and adolescence; Z79.82 Long term (current) use of aspirin; Z79.899 Other long term (current) drug therapy; Z86.79 Personal history of other diseases of the circulatory system; Z99.89 Dependence on other enabling machines and devices; Z79.4 Long term (current) use of insulin; Z79.02 Long term (current) use of antithrombotics/antiplatelets; Z79.891 Long term (current) use of opiate analgesic; Z87.891 Personal history of nicotine dependence; Z88.8 Allergy status to other drugs, medicaments and biological substances
CPT/HCPCS: 99232-AI; G0378; J0696; J1170; J1815; J2405; J7030; Q9967

== ENCOUNTER → 2020-10-16 | Outpatient (CLI) | payer BC, MEDICARE ==
[~2020-10-16] MED LIST changes: +CORDARONE200 MG/TAB PO; +DAYVIGO5 MG PO; +LINZESS72 MCG PO; +MIRALAX PA17 GM/Dose PO; +ZANAFLEX 4MG TAB4 MG PO
== END ==
LOC: COL.RAD 08:44
DX: M17.12 Unilateral primary osteoarthritis, left knee (principal); M23.304 Other meniscus derangements, unspecified medial meniscus, left knee

== ENCOUNTER 2020-10-17 04:24 | Emergency (ER) | payer BC, MEDICARE ==
[2004-09-22 09:23] VITALS: BP 152/87
[~2020-10-17] VITALS: Ht 177.8 cm; Wt 104.5 kg
[2020-10-17 04:25] VITALS: TEMP 97.7
[2020-10-17] MEDS ORDERED: AMOXICILLIN 8751 TAB PO (05:20)
[2020-10-17 05:55] VITALS: BP 128/70; PULSE 78
== END 2020-10-17 05:55 | disposition home or self-care (01) ==
LOC: COL.ER 04:24
DX: R04.0 Epistaxis (principal); F90.9 Attention-deficit hyperactivity disorder, unspecified type; F31.9 Bipolar disorder, unspecified; E11.9 Type 2 diabetes mellitus without complications; I10 Essential (primary) hypertension; E78.5 Hyperlipidemia, unspecified; J44.9 Chronic obstructive pulmonary disease, unspecified; Z79.4 Long term (current) use of insulin; Z86.73 Personal history of transient ischemic attack (TIA), and cerebral infarction without residual deficits; Z87.891 Personal history of nicotine dependence; Z79.899 Other long term (current) drug therapy; Z79.02 Long term (current) use of antithrombotics/antiplatelets; Z88.6 Allergy status to analgesic agent

== ENCOUNTER 2020-10-18 02:11 | Emergency (ER) | payer BC, MEDICARE ==
[2004-09-22 09:23] VITALS: BP 152/87
[~2020-10-18] VITALS: Ht 157.5 cm; Wt 104.5 kg
[2020-10-18 02:51] LABS: BASO % 0.2 % (0.0-2.0); EOS # 0.1 (0.0-0.7); EOS % 1.1 % (0-4.0); GRAN # 6.5 (1.4-6.5); GRAN % 76.2 % (42.2-75.2); HEMATOCRIT 49.5 % (42.0-52.0); HEMOGLOBIN 15.5 g/dl (13.5-18.0); LYMPH % 11.5 % (20.0-51.0); MEAN CELL VOLUME 98 fl (80.0-100.0); MEAN CORPUSCULAR HEMOGLOBIN 31 pg (27.0-31.0); MEAN CORPUSCULAR HGB CONC 31 g/dl (33.0-37.0); MEAN PLATELET VOLUME 10.1 fl (7.4-10.4); MONO # 0.9 (0.1-0.6); MONO % 10.8 % (1.7-9.3); PLATELET COUNT 192 K/mm3 (130-400); RED BLOOD COUNT 5.03 M/mm3 (4.20-5.60); REDCELL DISTRIBUTION WIDTH-CV 13.6 % (11.5-14.5)
[2020-10-18 05:23] VITALS: BP 165/80; PULSE 60; TEMP 98.3
== END 2020-10-18 05:23 | disposition home or self-care (01) ==
LOC: COL.ER 02:11
PROVIDERS: Emergency Medicine
DX: R04.0 Epistaxis (principal); F31.9 Bipolar disorder, unspecified; E11.9 Type 2 diabetes mellitus without complications; E78.5 Hyperlipidemia, unspecified; J44.9 Chronic obstructive pulmonary disease, unspecified; I12.9 Hypertensive chronic kidney disease with stage 1 through stage 4 chronic kidney disease, or unspecified chronic kidney disease; N18.9 Chronic kidney disease, unspecified; Z79.4 Long term (current) use of insulin; Z79.899 Other long term (current) drug therapy; Z88.6 Allergy status to analgesic agent

== ENCOUNTER 2020-10-20 07:52 | Emergency (ER) | payer BC, MEDICARE ==
[2004-09-22 09:23] VITALS: BP 152/87
[~2020-10-20] VITALS: Ht 177.8 cm; Wt 104.5 kg
[2020-10-20 08:12] VITALS: TEMP 97.9
[2020-10-20 09:07] LABS: BASO % 0.2 % (0.0-2.0); EOS # 0.1 (0.0-0.7); GRAN # 7.6 (1.4-6.5); GRAN % 79.3 % (42.2-75.2); HEMATOCRIT 48.4 % (42.0-52.0); LYMPH # 0.8 (1.2-3.4); MEAN CELL VOLUME 99 fl (80.0-100.0); MEAN CORPUSCULAR HEMOGLOBIN 31 pg (27.0-31.0); MEAN CORPUSCULAR HGB CONC 31 g/dl (33.0-37.0); MONO # 1.1 (0.1-0.6); MONO % 11.1 % (1.7-9.3); PLATELET COUNT 204 K/mm3 (130-400); RED BLOOD COUNT 4.88 M/mm3 (4.20-5.60); REDCELL DISTRIBUTION WIDTH-CV 14.1 % (11.5-14.5)
[2020-10-20 09:12] LABS: BILIRUBIN,TOTAL 0.6 mg/dL (0.0-1.0); CALCIUM 8.8 mg/dL (8.4-10.2); CREATININE, serum 1.29 (0.66-1.25); POTASSIUM 4.3 mmol/L (3.4-5.0); TOTAL PROTEIN 6.7 gm/dL (6.4-8.2)
[2020-10-20 10:05] LABS: COLLECTION METHOD CLEAN CATCH
[2020-10-20 10:17] LABS: MUCOUS Present /lpf; PH 6 (5-8); SQUAMOUS EPITHELIAL None Seen /hpf; URINE APPEARANCE Clear; URINE BACTERIA None Seen /hpf; URINE BILIRUBIN Negative (NEGATIVE); URINE BLOOD Negative (NEGATIVE); URINE COLOR Yellow; URINE GLUCOSE Negative (NEGATIVE); URINE KETONE Negative (NEGATIVE); URINE LEUKOCYTE ESTERASE 1+ (NEGATIVE); URINE NITRATE Negative (NEGATIVE); URINE PROTEIN(semi-quant) Negative (NEGATIVE); URINE RBC None Seen /hpf; URINE UROBILINOGEN Negative (NEGATIVE)
[2020-10-20 12:28] VITALS: BP 161/72; PULSE 60
== END 2020-10-20 12:40 | disposition home or self-care (01) ==
LOC: COL.ER 07:52
PROVIDERS: Personal Emergency Response Attendant
DX: K59.00 Constipation, unspecified (principal); I10 Essential (primary) hypertension; F41.9 Anxiety disorder, unspecified; F32.9 Major depressive disorder, single episode, unspecified; Z86.73 Personal history of transient ischemic attack (TIA), and cerebral infarction without residual deficits; Z90.49 Acquired absence of other specified parts of digestive tract; Z79.899 Other long term (current) drug therapy; Z79.02 Long term (current) use of antithrombotics/antiplatelets; Z79.82 Long term (current) use of aspirin
CPT/HCPCS: J2270; J2405; J7030; Q9967

== ENCOUNTER → 2021-03-29 | Outpatient (CLI) | payer BC, MEDICARE | LOC: COL.RAD 09:15 | DX: M54.6 Pain in thoracic spine (principal) | CPT/HCPCS: A9503 ==

== ENCOUNTER → 2022-03-10 | Outpatient (CLI) | payer BC, MEDICARE | LOC: COL.RAD 03-07 13:15 | DX: M48.54XA Collapsed vertebra, not elsewhere classified, thoracic region, initial encounter for fracture (principal) ==

== ENCOUNTER → 2024-01-23 | Outpatient (CLI) | payer BC, MEDICARE ==
[~2024-01-23] MED LIST changes: +ANORO IH; +CEFTIN 250250 MG/TAB PO; +CEFTIN500 MG PO; -LAMICTAL 100MG100 MG PO; +LAMICTAL200 MG PO; +LUTEIN20 M1 PO; +MELATONIN5 M1 PO; -MELATONIN5 M1 SL; +MUCUS RELIEF400 M1 PO; +OMNICEF 300MG300 MG PO; +PULMICORT90 MCG/Act IH; +WELLBUTRIN XL300 M1 PO; -ZESTRIL 10MG10 MG PO; +ZESTRIL 20MG TA20 MG PO
== END ==
LOC: COL.VAS 09:32
DX: I34.0 Nonrheumatic mitral (valve) insufficiency (principal); I65.23 Occlusion and stenosis of bilateral carotid arteries

== ENCOUNTER 2024-02-01 12:20 | Day surgery (SDC) | payer BC, MEDICARE ==
[~2024-02-01] VITALS: Ht 177.8 cm; Wt 102.3 kg
[2024-02-01] VITALS (12 sets, daily range): BP systolic 142–181; BP diastolic 56–77; PULSE 58–62; TEMP 97.5–98.4
[~2024-02-01 12:20] MED LIST changes: +HYDROmorphone 1 MG/1 ML SYRINGE [PACU/SDC ONLY] IV PRN; +LR 1,000 ML IV SCH; +Meperidine 50 MG/ML 1 ML VIAL IV PRN; +Ondansetron 4 MG/2 ML VIAL IV PRN; +droPERidol 2.5 MG/ML 2 ML VIAL IV PRN; +fentaNYL 50 MCG/ML 1 ML SYRINGE/VIAL [PACU/SDC ONLY] IV PRN; +hydrALAZINE 20 MG/ML 1 ML VIAL IV PRN
[2024-02-01] MEDS ORDERED: fentaNYL 50 MCG/ML 2 ML VIAL ONE (13:21)
[2024-02-01] MEDS ORDERED: Lidocaine PF 2% (20 MG/ML) 5 ML VIAL ONE (13:22)
[2024-02-01] MEDS ORDERED: TYLENOL 500MG500 MG PO (13:27)
[2024-02-01] MEDS ORDERED: ZANAFLEX CAPSULE4 MG PO (13:29)
[2024-02-01] MEDS ORDERED: LAMICTAL200 MG PO (13:32)
[2024-02-01] MEDS ORDERED: VITAMIN D 50,1.25 MG PO ×2 (13:33→13:35)
[2024-02-01] MEDS ORDERED: TRESIBA100 UNIT/1 SQ (13:36)
[2024-02-01] MEDS ORDERED: LASIX 20MG TABL20 MG PO (13:40)
[2024-02-01] MEDS ORDERED: GLUCOPHAGE500 MG/TAB PO (13:41)
[2024-02-01] MEDS ORDERED: ZESTRIL 10MG10 MG PO (13:42)
[2024-02-01] MEDS ORDERED: LIPITOR 40MG TA40 MG PO (13:42)
[2024-02-01] MEDS ORDERED: PACERONE100 MG PO (13:43)
[2024-02-01] MEDS ORDERED: BENADRYL50 MG PO (13:44)
[2024-02-01] MEDS ORDERED: CYMBALTA 20MG20 MG PO (13:45)
[2024-02-01] MEDS ORDERED: ALPHA LIPOIC A600 M1 PO (13:45)
[2024-02-01] MEDS ORDERED: MIRALAX119G PO (13:46)
[2024-02-01] MEDS ORDERED: LUTEIN6 MG (13:55)
[2024-02-01] MEDS ORDERED: Ondansetron 4 MG/2 ML VIAL ONE (14:47)
[2024-02-01] MEDS ORDERED: NS 10 ML IV ONE (14:47)
[2024-02-01] MEDS ORDERED: Tranexamic Acid 1,000 MG/10 ML VIAL ONE (14:51)
[2024-02-01] MEDS ORDERED: Ondansetron 4 MG/2 ML VIAL IV PRN (16:00)
[2024-02-01] MEDS ORDERED: NS Irrig Soln 3000 ML SOLN IR PRN (16:00)
[2024-02-01] MEDS ORDERED: Morphine 4 MG/ML VIAL IV PRN (16:00)
[2024-02-01] MEDS ORDERED: Acetaminophen 325 MG TAB PO PRN (16:00)
[2024-02-01] MEDS ORDERED: Dextrose 50% Water 25 GM/50 ML SYRINGE IV PRN (16:00)
[2024-02-01] MEDS ORDERED: Glucagon 1 MG VIAL IM PRN (16:00)
[2024-02-01] MEDS ORDERED: 1/2 NS 1,000 ML IV SCH (16:00)
[2024-02-01] MEDS ORDERED: Hyoscyamine 0.125 MG Sublingual TAB SL PRN ×2 (16:00)
[2024-02-01] MEDS ORDERED: oxyCODONE/Acetaminophen 5-325 MG TAB PO PRN (16:00)
[2024-02-01] MEDS ORDERED: Dextrose (Glucose) 15 GM (4 x 3.75 GM) Chewable TABLET PACK PO PRN (16:00)
[2024-02-01] MEDS ORDERED: Insulin Lispro (HumaLOG) SQ SCH (17:00)
--- NOTE | 2024-02-01 17:52 | NUR ---
Pt recently arrived to the floor from [facility]. He is awake, alert and oriented, spouse at bedside. No pain complaints upon arrival, although now stating dull pain rating it 7/10. CBI running slow, output is pale yellow. IVF infusing to left AC. Heart rate regular, paced, upper lung sounds clear. Abd rounded, soft. SCDs on bilaterally. Oriented pt and spouse to room and educated on room service
--- NOTE | 2024-02-01 20:35 | NUR ---
Patient resting in bed. Rates his pain at 7/10, prn pain meds given. Assissted patient to bathroom and back to bed. CBI infusing without complications, urine pale yellow and clear. Assessment complete. IV in left AC infusing without complications. Call light and personal items in reach. Bed in low position and bed alarm on.
[2024-02-01] MEDS ORDERED: Docusate Sodium 100 MG CAP PO SCH (21:00)
[2024-02-01] MEDS ORDERED: Insulin Glargine-ygfn (Lantus) SQ SCH (21:00)
[2024-02-01] MEDS ORDERED: Melatonin 3 MG TAB PO PRN (21:00)
[2024-02-01] MEDS ORDERED: Patient's Own Medication Item SQ SCH (21:00)
[2024-02-01] MEDS ORDERED: Lisinopril 10 MG TAB PO SCH (23:00)
--- NOTE | 2024-02-01 23:57 | NUR ---
RT NOTIFIED THAT PT HAS A HOME CPAP THAT NEEDS SET UP. PT STATES HE WEARS "A LITTLE ABOVE 2L" BLED INTO HIS CPAP. PT ALSO ON A NC. ORDERS OBTAINED FOR CPAP AND OXYGEN. PT ON 2L AT THIS TIME SATTING 92-93%.
[2024-02-02] VITALS (7 sets, daily range): BP systolic 160–173; BP diastolic 69–88; PULSE 60–66; TEMP 98–98.2
--- NOTE | 2024-02-02 08:29 | NUR ---
Patient sitting up in chair. He is alert and ordered. rounded and plan of care reviewed. Did alert of elevated blood pressures, no new orders at this time. Patient guy Dc as ordered and six cup routine started. patient tolerated well and voided x1. one clot noted. breakfast ordered. Am medication as ordered after reviewing with patient. Denies other needs at this time. He is aware to call when needing to void, brief on.
[2024-02-02] MEDS ORDERED: lamoTRIgine 100 MG TAB PO SCH (09:00)
[2024-02-02] MEDS ORDERED: QUEtiapine 25 MG TAB PO SCH (09:00)
[2024-02-02] MEDS ORDERED: DULoxetine 20 MG CAP PO SCH (09:00)
[2024-02-02] MEDS ORDERED: Amiodarone 200 MG TAB PO SCH (09:00)
[2024-02-02] MEDS ORDERED: Lisinopril 10 MG TAB PO SCH (09:00)
--- NOTE | 2024-02-02 09:21 | NUR ---
heating and ventilating worker met with patient and his , Elisa, P# [phone] (cell), P# [phone] (work) live in [place]. Patient's second contact is Obie P# [phone]. PCP is Dr. Garza, Pharmacy is [facility]. No issues affording medications at this time. Insurance is [facility] and Medicare A and B. DPOA-HC is on the EMR which lists Elisa as primary and Lyle (Obie) as secondary, patient also has a living will in the EMR. DME is cpap, cane, rollator walker. Patient stated for the most part he has been independent with ADLS but has been having some troubles recently with his blood pressure and diabetes. SW discussed home health services. Patient's expressed she has looked into those services. Elisa reported she works at [employer] and they have a student program that helps with caregiving to receive hours towards their classes. SW asked if patient would want a list of options for home health for skilled care (PT, OT and nursing). Elisa and patient felt it was not needed at this time. SW explained if they decided when they returned home that he may benefit from those services, Dr. Garza can assist with ordering those services for him. Patient and Elisa understood. Patient is transported by Elisa for appointments or utilizes [employer] [facility] but they were waiting for [employer] to give the approval for patient to use their direct route service. Patient would like to return home at time of discharge and does not have any concerns at this time. Discharge plan: Home
--- NOTE | 2024-02-02 10:00 | NUR ---
Patient assisted back to bed. He is having discomfort. Feels the urge to void. Unable. Bladder scan 108. Percocet for pain given. updated. Will give patient time.
--- NOTE | 2024-02-02 11:50 | NUR ---
Patient resting in bed. at his side. He reports his pain is improved, pain is still present, but burning. Bladder scan, less than 100. Voiding dribbles, clear. Report to
[2024-02-02] MEDS ORDERED: Lidocaine 2% (20 MG/ML) 20 ML UROJET UR PRN (13:15)
--- NOTE | 2024-02-02 15:04 | NUR ---
Patient ready for discharge home. He is feeling much better after guy insertion. He tolerated well. medication for pain as ordered. Int DC. discharge education given. hands onleg bag teaching given. medication list reviewed with last dose given and holding plavix until . follow up appt reviewed with office to call for guy removal. patient and questions and answered. patient wheeled out with belongings, his taking him home.
== END 2024-02-02 15:37 | disposition home or self-care (01) ==
LOC: SDCO 12:20 → SURG 16:35 → SDCO 02-02 15:37
DX: N40.1 Benign prostatic hyperplasia with lower urinary tract symptoms (principal); R39.12 Poor urinary stream; R35.0 Frequency of micturition; G47.33 Obstructive sleep apnea (adult) (pediatric); Z86.73 Personal history of transient ischemic attack (TIA), and cerebral infarction without residual deficits; Z95.5 Presence of coronary angioplasty implant and graft; Z79.02 Long term (current) use of antithrombotics/antiplatelets; Z87.891 Personal history of nicotine dependence
CPT/HCPCS: OP; A4314; J0665; J0690; J1815; J2405; J2704; J3010; J7120

== ENCOUNTER → 2024-03-06 | Outpatient (CLI) | payer BC, MEDICARE ==
[~2024-03-06] MED LIST changes: +ALPHA LIPOIC A600 M1 PO; +BENADRYL50 MG PO; +CYMBALTA 20MG20 MG PO; -HYDROmorphone 1 MG/1 ML SYRINGE [PACU/SDC ONLY] IV PRN; -LR 1,000 ML IV SCH; +LUTEIN6 MG; +MIRALAX119G PO; -Meperidine 50 MG/ML 1 ML VIAL IV PRN; -Ondansetron 4 MG/2 ML VIAL IV PRN; +PACERONE100 MG PO; +TRESIBA100 UNIT/1 SQ; +ZANAFLEX CAPSULE4 MG PO; +ZESTRIL 10MG10 MG PO; -droPERidol 2.5 MG/ML 2 ML VIAL IV PRN; -fentaNYL 50 MCG/ML 1 ML SYRINGE/VIAL [PACU/SDC ONLY] IV PRN; -hydrALAZINE 20 MG/ML 1 ML VIAL IV PRN
== END ==
LOC: COL.RAD 14:06
DX: Z12.2 Encounter for screening for malignant neoplasm of respiratory organs (principal); J43.9 Emphysema, unspecified; Z72.0 Tobacco use